=== PATIENT | female | born 1950 | race Caucasian/White ===

== ENCOUNTER → 2016-09-01 | Outpatient (CLI) | payer MEDICARE ==
--- NOTE | 2016-09-02 10:32 | MM ---
Reason for exam: screening (asymptomatic). Last mammogram was performed 4 years and 1 month ago. History: Patient is postmenopausal. Family history of breast cancer in mother. Physical Findings: A clinical breast exam by your physician is recommended on an annual basis and results should be correlated with mammographic findings. MG Screening Mammo w CAD Bilateral CC and MLO view(s) were taken. Prior study comparison: July 25, 2012, bilateral digital screening mammo w/CAD. June 01, 2011, bilateral digital screening mammo w/CAD. The breast tissue is heterogeneously dense. This may lower the sensitivity of mammography. Finding: There are typically benign calcifications in both breasts. There is a chronic nodularity bilaterally. No significant changes in finding since July 25, 2012 and June 01, 2011. ASSESSMENT: Benign, BI-RAD 2 RECOMMENDATION: Routine screening mammogram of both breasts in 1 year.
== END | disposition home or self-care (01) ==
LOC: RADMAMWWP 07:34
PROVIDERS: ATTEND Family Medicine
DX: Z12.31 Encounter for screening mammogram for malignant neoplasm of breast (principal)

== ENCOUNTER → 2018-01-20 | Outpatient (CLI) | payer MEDICARE ==
--- NOTE | 2018-01-20 09:40 | MM ---
Reason for exam: screening (asymptomatic). Last mammogram was performed 1 year and 5 months ago. History: Patient is postmenopausal. Family history of breast cancer in mother. Physical Findings: A clinical breast exam by your physician is recommended on an annual basis and results should be correlated with mammographic findings. MG Screening Mammo w CAD Bilateral CC and MLO view(s) were taken. Prior study comparison: September 01, 2016, bilateral MG screening mammo w CAD. July 25, 2012, bilateral digital screening mammo w/CAD. The breast tissue is heterogeneously dense. This may lower the sensitivity of mammography. Finding: There are typically benign round, grouped/clustered calcifications in the upper outer quadrant, posterior position of the left breast. There is a chronic nodularity bilaterally. There is no discrete abnormality. ASSESSMENT: Benign, BI-RAD 2 RECOMMENDATION: Routine screening mammogram of both breasts in 1 year.
== END | disposition home or self-care (01) ==
LOC: RADMAMWWP 06:44
PROVIDERS: ATTEND Family Medicine
DX: Z12.31 Encounter for screening mammogram for malignant neoplasm of breast (principal)
CPT/HCPCS: 77067

== ENCOUNTER → 2018-04-01 | Outpatient (CLI) | payer MEDICARE ==
--- NOTE | 2018-04-01 11:01 | XR ---
EXAMINATION TYPE: XR shoulder complete RT DATE OF EXAM: 04/01/2018 CLINICAL HISTORY: Right shoulder pain after a fall TECHNIQUE: Three views of the right shoulder are obtained. COMPARISON: None. FINDINGS: There is no acute fracture/dislocation evident in the right shoulder. The acromioclavicul ar and glenohumeral joint spaces appear demonstrate moderate acromioclavicular arthropathy and mild g lenohumeral arthropathy with small marginal osteophytes. The visualized ribs are intact and unremark able. IMPRESSION: There is no acute fracture or dislocation in the right shoulder. Moderate acromioclavicu lar arthropathy and mild glenohumeral arthropathy.
== END | disposition home or self-care (01) ==
LOC: RADXRMAIN 09:34
PROVIDERS: ATTEND Family Medicine
DX: M19.011 Primary osteoarthritis, right shoulder (principal)

== ENCOUNTER → 2020-07-15 | Outpatient (CLI) | payer MEDICARE ==
--- NOTE | 2020-07-17 08:45 | MM ---
Reason for exam: screening (asymptomatic). Last mammogram was performed 2 years and 6 months ago. History: Patient is postmenopausal and has history of other cancer at age 65. Family history of breast cancer in mother. Physical Findings: A clinical breast exam by your physician is recommended on an annual basis and results should be correlated with mammographic findings. MG 3D Screening Mammo W/Cad Bilateral CC and MLO view(s) were taken. Prior study comparison: January 20, 2018, bilateral MG screening mammo w CAD. September 01, 2016, bilateral MG screening mammo w CAD. The breast tissue is heterogeneously dense. This may lower the sensitivity of mammography. Finding: There are typically benign fine diffuse/scattered calcifications in both breasts. No significant changes in finding since January 20, 2018 and September 01, 2016. ASSESSMENT: Benign, BI-RAD 2 RECOMMENDATION: Routine screening mammogram of both breasts in 1 year.
--- NOTE | 2020-07-17 10:39 | BD ---
EXAMINATION TYPE: Axial Bone Density DATE OF EXAM: 07/15/2020 COMPARISON: NONE CLINICAL HISTORY: Height: 5 fFT 5 1/2 IN Weight: 169 FRAX RISK QUESTIONS: Alcohol (3 or more units per day): NO Family History (Parent hip fracture): NO Glucocorticoids (More than 3mos): NO (Ex: prednisone, prednisolone, methylprednisolone, dexamethasone, and hydrocortisone). History of Fracture in Adulthood: NO Secondary Osteoporosis: 1. Type 1 Diabetes: NO 2. Hyperthyroidism: NO 3. Menopause before 45: NO 4. Malnutrition: NO 5. Chronic liver disease: NO Rheumatoid Arthritis: NO Current Tobacco Use: JUST QUIT FOR ONE MONTH WAS A SMOKER FOR HER WHOLE LIFE RISK FACTORS HISTORY OF: Surgery to Spine/Hip(right/left)/Wrist (right/left): MARTHA HIP REPLACEMENT When: 2015 AND 2012 Family History of Osteoporosis: NO Active: YES Diet low in dairy products/other sources of calcium: NO Postmenopausal woman: AGE 47 Take estrogen and/or progesterone medications: NONE Lost more than 2 inches in height since high school: NO MEDICATIONS: Additional Medications: CHANTEX, JANUVIA, ATORVASTATIN, TRAZODONE, ASPIRIN,MELOXICAM,OXYBUTIN Additional History: EXAM MEASUREMENTS: Bone mineral densitometry was performed using the [employer] System. Bone mineral density as measured about the Lumbar spine is: ----- L1-L4(G/cm2): 1.513 T Score Values are as follows: ----- L2: 1.0 ----- L3: 4.2 ----- L4: 4.8 ----- L1-L4: 2.8 Bone mineral density has: INCREASED 29.9 % since study of: 2002 Bone mineral density about the L Wrist (g/cm2): 0.589 T Score values are as follows: -----Dist. R+U: -1.6 -----Prox. R+U: -1.2 -----Radius total: -1.4 FIRST TIME WRIST HAS BEEN DONE IMPRESSION: Osteopenia (T Score between -2.5 and -1). There is slightly increased risk of fracture and the patient may be considered for treatment. Re-Screen 2-5 years. NOTE: T-SCORE=SD OF THE YOUNG ADULT MEAN.
== END | disposition home or self-care (01) ==
LOC: RADMAMWWP 15:15
PROVIDERS: ATTEND Family Medicine
DX: Z12.31 Encounter for screening mammogram for malignant neoplasm of breast (principal); M85.80 Other specified disorders of bone density and structure, unspecified site
CPT/HCPCS: 77063; 77067; 77080

== ENCOUNTER → 2021-03-21 | Outpatient (CLI) | payer MEDICARE ==
[~2021-03-21] MED LIST: CASIRIVIMAB (REGN10933) (EUA) 600 MG, IMDEVIMAB (REGN10987) (EUA) 600 MG in SODIUM CHLO... IVPB NR; SODIUM CHLORIDE 0.9% 50 ML IVPB NR; SODIUM CHLORIDE 0.9% 500 ML 500 ML in EMPTY BAG 1 BAG IV PRN
[2021-03-21 10:37] VITALS: TEMP 97.7
[2021-03-21 10:46] VITALS: RESP 16
[2021-03-21 11:35] VITALS: BP 131/61; PULSE 76
== END | disposition home or self-care (01) ==
LOC: PROCWHC3 09:56
PROVIDERS: ATTEND Physician Assistant
DX: U07.1 COVID-19 (principal)
CPT/HCPCS: 96360; Q0244; M0243

== ENCOUNTER → 2021-09-29 | Outpatient (CLI) | payer MEDICARE ==
--- NOTE | 2021-09-30 09:29 | MM ---
Reason for Exam: Screening (asymptomatic). Last mammogram was performed 1 year(s) and 2 month(s) ago. Patient History: Menarche at age 11. Postmenopausal. Other cancer, age 65. Mother had breast cancer at or over age 50. Risk Values: Shameka 5 year model risk: 3.3%. NCI Lifetime model risk: 8.4%. Prior Study Comparison: 09/01/2016 Bilateral Screening Mammogram, [facility]. 01/20/2018 Bilateral Screening Mammogram, [facility]. 07/15/2020 Bilateral Screening Mammogram, [facility]. Tissue Density: The breast tissue is heterogeneously dense. This may lower the sensitivity of mammography. Findings: Analyzed By CAD. There are loosely grouped calcifications in the upper outer margin left breast. Additional benign-appearing calcifications. No dominant mass or architectural distortion. Overall Assessment: Incomplete: need additional imaging evaluation, BI-RAD 0 Management: Special View Mammogram of the left breast. A clinical breast exam by your physician is recommended on an annual basis and results should be correlated with mammographic findings. Electronically signed and approved by: Damaso Mckeon M.D. Radiologis
== END | disposition home or self-care (01) ==
LOC: RADMAMWWP 07:00
PROVIDERS: ATTEND Family Medicine
DX: Z12.31 Encounter for screening mammogram for malignant neoplasm of breast (principal); Z78.0 Asymptomatic menopausal state; Z80.3 Family history of malignant neoplasm of breast
CPT/HCPCS: 77063; 77067

== ENCOUNTER → 2021-10-03 | Outpatient (CLI) | payer MEDICARE ==
--- NOTE | 2021-10-03 08:31 | MM ---
Reason for Exam: Additional evaluation requested from abnormal screening. Last screening mammogram was performed less than 1 month ago. Patient History: Menarche at age 11. Postmenopausal. Other cancer, age 65. Mother had breast cancer at or over age 50. Risk Values: Shameka 5 year model risk: 3.3%. NCI Lifetime model risk: 8.4%. Prior Study Comparison: 01/20/2018 Bilateral Screening Mammogram, [facility]. 07/15/2020 Bilateral Screening Mammogram, [facility]. 09/29/2021 Bilateral MG 3D screening mammo w/cad, [facility]. Tissue Density: Left: The breast tissue is heterogeneously dense. This may lower the sensitivity of mammography. Findings: Analyzed By CAD. There are loosely grouped calcifications noted within the upper outer left breast zone C. Six-month follow-up mammography advised. Overall Assessment: Probably benign, BI-RAD 3 Management: Diagnostic Mammogram of the left breast. A clinical breast exam by your physician is recommended on an annual basis and results should be correlated with mammographic findings. This exam should not preclude additional follow-up of suspicious palpable abnormalities. Results were given to the patient verbally at the time of exam. Electronically signed and approved by: Ceasr Luevano M.D. Radiologis
== END | disposition home or self-care (01) ==
LOC: RADMAMWWP 07:42
PROVIDERS: ATTEND Family Medicine
DX: R92.8 Other abnormal and inconclusive findings on diagnostic imaging of breast (principal); Z78.0 Asymptomatic menopausal state; Z80.3 Family history of malignant neoplasm of breast
CPT/HCPCS: 77065; G0279; 77061

== ENCOUNTER → 2021-12-30 | Outpatient (CLI) | payer MEDICARE ==
--- NOTE | 2021-12-30 16:47 | XR ---
EXAMINATION TYPE: XR lumbar spine 2 or 3V DATE OF EXAM: 12/30/2021 3:35 PM INDICATION: Patient age:Female; 71 years old; Reason for study: M54.31 Sciatica; COMPARISON: None TECHNIQUE: Frontal, lateral and coned in L5-S1 lateral views of the spine. FINDINGS: There is multilevel disc degeneration changes with osteophyte formation and facet joint art hropathy. There is dextro scoliosis apex L3. There is grade 1 anterolisthesis of L4 on L5. Multilevel spinal canal narrowing seen throughout the spine most pronounced at L3-L4 and L5. No evidence for ac parker fracture. Soft tissues course of the arterial vasculature. There is large stool burden. Surgical clips in the pelvis. IMPRESSION: Moderate to severe degeneration changes of the spine with multilevel facet joint arthropathy and mult ilevel varying degrees of spinal canal stenosis.
--- NOTE | 2021-12-30 17:52 | CA ---
Transthoracic Echo Report Name: Lana Olivo Age: 71 Gender: F : 1950 Exam Date: 12/30/2021 15:01 Exam Location: [facility] Ht (in): 66 Wt (lb): 184 Ordering Physician: Philippe Hardy DO Attending/Referring Phys: Gang Bore Operator Yaz Williamson RDCS Procedure CPT: Indications: R01.1 cardiac murmur Cardiac Hx: Technical Quality: Fair Contrast 1: Total Dose (mL): Contrast 2: Total Dose (mL): MEASUREMENTS (Male / Female) Normal Values 2D ECHO LV Diastolic Diameter PLAX 5.2 cm 4.2 - 5.9 / 3.9 - 5.3 cm LV Systolic Diameter PLAX 3.8 cm IVS Diastolic Thickness 1.3 cm 0.6 - 1.0 / 0.6 - 0.9 cm LVPW Diastolic Thickness 1.4 cm 0.6 - 1.0 / 0.6 - 0.9 cm LV Relative Wall Thickness 0.5 RV Internal Dim ED PLAX 3.1 cm LA Systolic Diameter LX 3.5 cm 3.0 - 4.0 / 2.7 - 3.8 cm LA Volume 41.7 cm??? 18 - 58 / 22 - 52 cm??? M-MODE Aortic Root Diameter MM 3.5 cm MV E Point Septal Separation 2.6 cm AV Cusp Separation MM 2.1 cm DOPPLER AV Peak Velocity 249.7 cm/s AV Peak Gradient 24.9 mmHg AV Mean Velocity 175.4 cm/s AV Mean Gradient 13.7 mmHg AV Velocity Time Integral 59.9 cm LVOT Peak Velocity 73.7 cm/s LVOT Peak Gradient 2.2 mmHg MV Area PHT 3.6 cm??? Mitral E Point Velocity 79.6 cm/s Mitral A Point Velocity 79.6 cm/s Mitral E to A Ratio 1.0 MV Deceleration Time 211.4 ms MV E' Velocity 5.9 cm/s Mitral E to MV E' Ratio 13.5 TR Peak Velocity 215.6 cm/s TR Peak Gradient 18.6 mmHg Right Ventricular Systolic Press 22.7 mmHg FINDINGS Left Ventricle Left ventricular ejection fraction is estimated at 55-60 %. Mildly increased septal wall thickness. Moderately increased posterior wall thickness. Left ventricular cavity size normal. Right Ventricle Normal right ventricular size. Right ventricular systolic pressure within normal limits. Right Atrium Normal right atrial size. Left Atrium Normal left atrial size. No evidence for an atrial septal defect. Mitral Valve Structurally normal mitral valve. No evidence for mitral valve prolapse. No mitral stenosis. Trace to mild mitral regurgitation. Aortic Valve Aortic valve not well visualized. Focal thickening of the aortic valve cusps. Mild aortic stenosis with a peak gradient of 25 mmHg and a mean gradient of 14 mmHg. Tricuspid Valve Trace to mild tricuspid regurgitation. Pulmonic Valve Pulmonic valve not well visualized. Pericardium Normal pericardium. No pericardial effusion. Aorta Normal size aortic root and proximal ascending aorta. CONCLUSIONS Normal LV systolic function mild aortic stenosis Previewed by: Dr. Blue Tena MD (Electronically Signed) Final Date: 30 December 2021 17:51
== END | disposition home or self-care (01) ==
LOC: RADECHMAIN 14:47
PROVIDERS: ATTEND Family Medicine
DX: M47.816 Spondylosis without myelopathy or radiculopathy, lumbar region (principal); M48.061 Spinal stenosis, lumbar region without neurogenic claudication; I08.3 Combined rheumatic disorders of mitral, aortic and tricuspid valves
CPT/HCPCS: 72100; 93306

== ENCOUNTER → 2022-04-08 | Outpatient (CLI) | payer MEDICARE ==
--- NOTE | 2022-04-08 10:47 | MM ---
Reason for Exam: Follow-up at short interval from prior study. Last screening mammogram was performed 6 month(s) ago. Patient History: Menarche at age 11. First Full-Term at age 20. Left ovary removed at age 47. Right ovary removed at age 47. Hysterectomy at age 47. Postmenopausal. Mother had breast cancer at or over age 50. Risk Values: Shameka 5 year model risk: 3.4%. NCI Lifetime model risk: 8.6%. Prior Study Comparison: 07/15/2020 Bilateral Screening Mammogram, [facility]. 09/29/2021 Bilateral MG 3D screening mammo w/cad, [facility]. 10/03/2021 Left MG 3D work up w/cad , [facility]. Tissue Density: Left: There are scattered fibroglandular densities. Findings: Analyzed By CAD. Increasing conspicuity of grouped calcifications within the left breast approximately 12 cm from nipple on CC view which have become more prominent compared to 07/15/2020 where they were not definitively visualized. Additional more stable benign appearing grouped calcifications are also present more laterally on left CC view. Overall Assessment: Suspicious, BI-RAD 4 Management: Stereotactic Core Biopsy of the left breast. A clinical breast exam by your physician is recommended on an annual basis and results should be correlated with mammographic findings. This exam should not preclude additional follow-up of suspicious palpable abnormalities. Results were given to the patient verbally at the time of exam. Electronically signed and approved by: Chad Cortez DO
== END | disposition home or self-care (01) ==
LOC: RADMAMWWP 09:12
PROVIDERS: ATTEND Family Medicine
DX: N64.89 Other specified disorders of breast (principal); Z78.0 Asymptomatic menopausal state; Z80.3 Family history of malignant neoplasm of breast; Z90.721 Acquired absence of ovaries, unilateral
CPT/HCPCS: 77065; G0279; 77061

== ENCOUNTER → 2022-04-30 | Outpatient (CLI) | payer MEDICARE ==
[2022-04-30 07:39] VITALS: BP 121/54; PULSE 62; RESP 17; TEMP 98
--- NOTE | 2022-04-30 08:12 | P.GSHP ---
History of Present Illness H&P Date: 04/30/22 Chief Complaint: Abnormal left breast mammogram Lana is a 71-year-old white female seen in consultation for Dr. Hardy regarding the radiographic abnormality in the left breast. On 2421 she underwent a bilateral mammogram which revealed some calcifications in the upper outer left breast zone C in 6 month follow-up was recommended. Six-month follow-up was performed on [id number]. This revealed increasing calcifications for which stereotactic core biopsy was recommended these were noted on the cc view approximately 12 cm from the nipple. It does not feel any lumps masses or nodules of concern in either breast. She has never had any surgery on her cor[address] in the past. She is not complaining of any nipple discharge or skin changes. She has not had any recent trauma or infection in the breast. Caffeine: 3 cups coffee/day nicotine: none; stopped 3 years ago used to smoke 1/PPD for 50 years chocolate: daily BCP: 1 year Family History: mother: breast cancer at 72 brother: bladder cancer patient: skin cancer above right eye, uterine cancer Hormonal history: Menarche: 14 M1, breast fed: no, age at first : 20 menopause: 47 hormones: none Surgical History: skin cancer two hip replacements hysterectomy/ ? if they took ovaries Medical History: arthritis in back COPD Social History: alcohol: occasional drugs: none nicotine: as above - Constitutional Constitutional: Denies chills, Denies fever - EENT Eyes: bilateral as per HPI (cataracts), denies blurred vision, denies pain Ears, nose, mouth and throat: Denies headache, Denies sore throat - Breasts Breasts: bilateral: as per HPI - Cardiovascular Cardiovascular: Denies chest pain, Denies shortness of breath - Respiratory Respiratory: Denies cough, Denies 7 - Gastrointestinal Gastrointestinal: Denies abdominal pain, Denies diarrhea, Denies nausea, Denies vomiting - Genitourinary (Female) Genitourinary: Denies dysuria, Denies hematuria - Menstruation Menstruation: Reports as per HPI - Musculoskeletal Musculoskeletal: Reports as per HPI - Integumentary Integumentary: Denies pruritus, Denies rash - Neurological Neurological: Reports numbness, Denies weakness - Psychiatric Psychiatric: Denies anxiety, Denies depression - Endocrine Endocrine: Denies fatigue, Denies weight change - Hematologic/Lymphatic Comment: none - Allergic/Immunologic Allergic/Immunologic: Reports as per HPI Past Medical History Past Medical History: COPD, Hyperlipidemia, Hypertension Additional Past Medical History / Comment(s): Skin cancer in the form of basal cell carcinoma on the forehead that was resected, uterine cancer status post hysterectomy History of Any Multi-Drug Resistant Organisms: None Reported Past Surgical History: Appendectomy, Hysterectomy, Joint Replacement Additional Past Surgical History / Comment(s): basal cell forehead Past Anesthesia/Blood Transfusion Reactions: No Reported Reaction Past Psychological History: No Psychological Hx Reported Smoking Status: Former smoker Past Alcohol Use History: None Reported Past Drug Use History: None Reported - Past Family History Brother(s) Family Medical History: Cancer Sister(s) Family Medical History: Cancer Mother Family Medical History: Cancer Father Family Medical History: Deep Vein Thrombosis (DVT) Medications and Allergies Home Medications Medication Instructions Recorded Confirmed Type Atorvastatin [Lipitor] 20 mg PO HS 02/27/15 04/30/22 History Docusate [Colace] 100 mg PO DAILY #30 capsule 01/08/16 04/30/22 Rx Ascorbic Acid [Vitamin C] 500 mg PO TID 04/08/22 04/30/22 History Aspirin [[place] Aspirin EC] 81 mg PO DAILY 04/08/22 04/30/22 History Cholecalciferol (Vitamin D3) 125 mcg PO BID 04/08/22 04/30/22 History [Vitamin D3 (125 MCG = 5,000 IU)] Finerenone [Kerendia] 10 mg PO DAILY 04/08/22 04/30/22 History Losartan [Cozaar] 25 mg PO DAILY 04/08/22 04/30/22 History Omeprazole [PriLOSEC] 20 mg PO AC-BRKFST 04/08/22 04/30/22 History Oxybutynin Chloride [Oxybutynin 15 mg PO DAILY 04/08/22 04/30/22 History Chloride ER] icosapent ethyL [Vascepa] 2 gm PO BID 04/08/22 04/30/22 History sitaGLIPtin [Januvia] 100 mg PO DAILY 04/08/22 04/30/22 History traZODone HCL [Desyrel] 50 mg PO HS 04/08/22 04/30/22 History Allergies Allergy/AdvReac Type Severity Reaction Status Date / Time No Known Allergies Allergy Verified 04/30/22 07:34 Surgical - Exam Vital Signs Temp Pulse Resp BP Pulse Ox 98 F 62 17 121/54 98 04/30/22 07:37 04/30/22 07:37 04/30/22 07:37 04/30/22 07:37 04/30/22 07:37 - General no distress - Eyes normal ocular movement - ENT no hearing loss, no congestion - Neck trachea midline - Respiratory normal respiratory effort, clear to auscultation - Cardiovascular Rhythm: regular Heart Sounds: normal: S1, S2 - Abdomen Abdomen: soft - Integumentary normal turgor - Neurologic no disoriented, no combative - Musculoskeletal normal gait - Psychiatric oriented to time, oriented to person, oriented to place, speech is normal, memory intact Breast Exam: BRA: 42C Inspection: Bilateral grade 2/3 ptosis Palpation: Right breast: Multiple positional exam fibrocystic changes no dominant masses or nodules of concern Right axilla: No adenopathy of concern Left breast: Multiple positional exam fibrocystic changes no dominant masses or nodules of concern Left axilla: No adenopathy of concern Results Mammogram reviewed in detail with Dr. Tarango; microcalcifications of concern left breast Assessment and Plan Assessment: Impression: Left breast radiographic abnormality/microcalcifications Fibrocystic breast changes Plan: Left breast stereotactic core biopsy Risks and benefits the procedure discussed with the patient. Risks include but are not limited to bleeding, infection, reaction to the anesthetic. The patient understands and wishes to proceed. If the lesion were to be discordant and further tissue may be acquisition may be necessary. Additionally options such as watchful waiting for resection in the operating room are discussed but not recommended. CC: Dr. Hardy
--- NOTE | 2022-04-30 09:50 | P.PCN ---
Date of Procedure: 04/30/22 Preoperative Diagnosis: Microcalcifications of concern left breast Postoperative Diagnosis: Same Procedure(s) Performed: Left breast stereotactic core biopsy Anesthesia: local Surgeon: Zaria Salgado Pathology: other (Breast tissue with microcalcifications of concern) Condition: stable Disposition: same day Indications for Procedure: Microcalcifications of concern left breast Operative Findings: Radiographic of specimen reveals microcalcifications of concern Description of Procedure: The patient was brought to the stereotactic core biopsy room. She was positioned prone on the Lorad table. A district manager film was obtained. A CC from below approach was utilized. The calcifications of concern were identified. They were targeted. The breast was prepped using Betadine. A 9-gauge vacuum- assisted core rotating biopsy needle was driven to the correct coordinates after 20 mL of 1% lidocaine were used to anesthetize the area of concern. A prefire film was obtained. The needle was noted to be in the correct location. The needle was fired. Post fire film was obtained. The needle was noted to be in the correct location. 16 core biopsy specimens were obtained. Radiograph of the specimen revealed the area of concern had been adequately sampled. A butterfly clip was placed. Could not be seen with certainty that it was in the right location therefore a secure marked top a clip was placed. Postprocedure radiograph revealed that the initial clip was in the correct location. The secure marked top at clip appeared to have migrated from the area of biopsy. The patient tolerated the procedure in stable condition. Specimen was sent to pathology. The patient will follow-up with Dr. Gordon next week.
== END ==
LOC: WWCWWP 07:03
PROVIDERS: ATTEND Surgery
DX: Z85.3 Personal history of malignant neoplasm of breast (principal); M19.90 Unspecified osteoarthritis, unspecified site; J44.9 Chronic obstructive pulmonary disease, unspecified; E78.5 Hyperlipidemia, unspecified; I10 Essential (primary) hypertension; Z79.82 Long term (current) use of aspirin; F17.200 Nicotine dependence, unspecified, uncomplicated

== ENCOUNTER → 2022-04-30 | Day surgery (SDC) | payer MEDICARE ==
--- NOTE | 2022-04-30 11:48 | MM ---
Date of Procedure: 04/30/22 Preoperative Diagnosis: Microcalcifications of concern left breast Postoperative Diagnosis: Same Procedure(s) Performed: Left breast stereotactic core biopsy Anesthesia: local Surgeon: Zaria Salgado Pathology: other (Breast tissue with microcalcifications of concern) Condition: stable Disposition: same day Indications for Procedure: Microcalcifications of concern left breast Operative Findings: Radiographic of specimen reveals microcalcifications of concern Description of Procedure: The patient was brought to the stereotactic core biopsy room. She was positioned prone on the [place] table. A hockey scout film was obtained. A CC from below approach was utilized. The calcifications of concern were identified. They were targeted. The breast was prepped using Betadine. A 9-gauge vacuum- assisted core rotating biopsy needle was driven to the correct coordinates after 20 mL of 1% lidocaine were used to anesthetize the area of concern. A prefire film was obtained. The needle was noted to be in the correct location. The needle was fired. Post fire film was obtained. The needle was noted to be in the correct location. 16 core biopsy specimens were obtained. Radiograph of the specimen revealed the area of concern had been adequately sampled. A butterfly clip was placed. Could not be seen with certainty that it was in the right location therefore a secure marked top a clip was placed. Postprocedure radiograph revealed that the initial clip was in the correct location. The secure marked top at clip appeared to have migrated from the area of biopsy. The patient tolerated the procedure in stable condition. Specimen was sent to pathology. The patient will follow-up with Dr. Gordon next week. ONUR
== END ==
LOC: RADMAMWWP 07:05
PROVIDERS: ATTEND Surgery
DX: N60.22 Fibroadenosis of left breast (principal); N60.12 Diffuse cystic mastopathy of left breast; N60.92 Unspecified benign mammary dysplasia of left breast
CPT/HCPCS: 88305; 88342; 88341; 19081; A4648

== ENCOUNTER → 2022-05-08 | Outpatient (CLI) | payer MEDICARE ==
[2022-05-08 12:32] VITALS: BP 150/75; PULSE 77; RESP 17; TEMP 97.9
--- NOTE | 2022-05-08 13:03 | P.PN ---
Subjective Progress Note Date: 05/08/22 Principal diagnosis: atypical lobular hyperplasia Lana is a 71 year old white female status post left breast stero biopsy on 04-30-22. Her pathology revealed atypical lobular hyperplasia. At the time of the procedure 2 clips were placed a coil clip and a top hat clip. The radiograph has been reviewed extensively with Dr. Tarango from radiology and it is felt that the cortical clip was the one which is in proximity to the area of biopsy. Additionally there were 2 areas of calcification the second area which is again reviewed today does not appear to be suspicious and is not felt to warrant interventional biopsy prior to needle localization and excision of the a zane of atypia. Objective - Vital Signs Vital signs: Vital Signs Temp 97.9 F 05/08/22 12:29 Pulse 77 05/08/22 12:29 Resp 17 05/08/22 12:29 BP 150/75 05/08/22 12:29 Pulse Ox 97 05/08/22 12:29 FiO2 Intake & Output 05/07/22 05/08/22 05/08/22 18:59 06:59 18:59 Weight 83.007 kg - Constitutional General appearance: Present: cooperative - EENT Eyes: Present: EOMI ENT: Present: hearing grossly normal - Neck Neck: Present: normal ROM - Respiratory Respiratory: bilateral: CTA - Cardiovascular Rhythm: regular Heart sounds: normal: S1, S2 - Gastrointestinal General gastrointestinal: Present: soft - Integumentary Integumentary Comment(s): mild echymosis left breast at biopsy site Integumentary: Present: normal turgor - Musculoskeletal Musculoskeletal: Present: gait normal - Psychiatric Psychiatric: Present: A&O x's 3, appropriate affect, intact judgment & insight Assessment and Plan Assessment: impression: left breast stero biopsy atypical lobular hyperplasia Plan: needle localization and lumpectomy left breast, with possible onco-plastic tissue transfer At this time the patient and her are going to [place] and they will have the procedure performed when they return towards the end of June. They understand that I cannot promise that this is not malignant however they will have the procedure done when they come back. CC: Dr. Hardy
== END ==
LOC: WWCWWP 12:23
PROVIDERS: ATTEND Surgery
DX: N60.82 Other benign mammary dysplasias of left breast (principal); F17.200 Nicotine dependence, unspecified, uncomplicated

== ENCOUNTER → 2022-08-27 | Outpatient (CLI) | payer MEDICARE ==
[2022-08-27 15:10] VITALS: BP 129/55; PULSE 63; RESP 18; TEMP 97.9
--- NOTE | 2022-08-27 15:30 | P.PN ---
Subjective Progress Note Date: 08/27/22 Principal diagnosis: Atypical lobular hyperplasia Lana is a 71-year-old white female seen in consultation for Dr. Hardy regarding a radiographic abnormality in the left breast. On she underwent a bilateral mammogram which revealed some calcifications in the upper outer left breast zone C in 6 month follow-up was recommended. Six-month follow-up was performed on [id number]. This revealed increasing calcifications for which stereotactic core biopsy was recommended these were noted on the cc view approximately 12 cm from the nipple. On 04-30-22 she underwent a stereotactic core biopsy. This revealed atypical lobular hyperplasia. She does not feel any lumps masses or nodules of concern in either breast. She has never had any surgery on her breast in the past. She is not complaining of any nipple discharge or skin changes. She has not had any recent trauma or infection in the breast. At the time of the procedure 2 clips were placed. A coil clip and a Top-Hat clip were placed. The radiograph was reviewed extensively with Dr. Tarango from radiology and it was felt that the corneal clip was the one which was in proximity to the area of the biopsy. Additionally there were 2 areas of calcification the second area which was again reviewed did not appear to be suspicious and was not felt to warrant interventional biopsy prior to needle localization and excision of the area of atypia. The mammogram was reviewed today with Dr. De Leon. It is felt that there are residual calcifications in the vicinity of the biopsy. The biopsy may be discordant. I discussed with the patient that we could forego a needle local excisional biopsy and recent recommendations are to watch some atypical lobular hyperplasias. However secondary to the radiographic findings as well as the patient's family history the patient would prefer that the area be excised. Caffeine: 3 cups coffee/day nicotine: none; stopped 3 years ago used to smoke 1/PPD for 50 years chocolate: daily BCP: 1 year Family History: mother: breast cancer at 72 brother: bladder cancer patient: skin cancer above right eye, uterine cancer Hormonal history: Menarche: 14 M1, breast fed: no, age at first : 20 menopause: 47 hormones: none Surgical History: skin cancer two hip replacements hysterectomy/ ? if they took ovaries Medical History: arthritis in back COPD Social History: alcohol: occasional drugs: none nicotine: as above - Constitutional Constitutional: Denies chills, Denies fever - EENT Eyes: bilateral as per HPI (cataracts), denies blurred vision, denies pain Ears, nose, mouth and throat: Denies headache, Denies sore throat - Breasts Breasts: bilateral: as per HPI - Cardiovascular Cardiovascular: Denies chest pain, Denies shortness of breath - Respiratory Respiratory: Denies cough - Gastrointestinal Gastrointestinal: Denies abdominal pain, Denies diarrhea, Denies nausea, Denies vomiting - Genitourinary (Female) Genitourinary: Denies dysuria, Denies hematuria - Menstruation Menstruation: Reports as per HPI - Musculoskeletal Musculoskeletal: Reports as per HPI - Integumentary Integumentary: Denies pruritus, Denies rash - Neurological Neurological: Reports numbness, Denies weakness - Psychiatric Psychiatric: Denies anxiety, Denies depression - Endocrine Endocrine: Denies fatigue, Denies weight change - Hematologic/Lymphatic Comment: none - Allergic/Immunologic Allergic/Immunologic: Reports as per HPI Past Medical History Past Medical History: COPD, Hyperlipidemia, Hypertension Additional Past Medical History / Comment(s): Skin cancer in the form of basal cell carcinoma on the forehead that was resected, uterine cancer status post hysterectomy History of Any Multi-Drug Resistant Organisms: None Reported Past Surgical History: Appendectomy, Hysterectomy, Joint Replacement Additional Past Surgical History / Comment(s): basal cell forehead Past Anesthesia/Blood Transfusion Reactions: No Reported Reaction Past Psychological History: No Psychological Hx Reported Smoking Status: Former smoker Past Alcohol Use History: None Reported Past Drug Use History: None Reported - Past Family History Brother(s) Family Medical History: Cancer Sister(s) Family Medical History: Cancer Mother Family Medical History: Cancer Father Family Medical History: Deep Vein Thrombosis (DVT) Medications and Allergies Home Medications Medication Instructions Recorded Confirmed Type Atorvastatin [Lipitor] 20 mg PO HS 02/27/15 04/30/22 History Docusate [Colace] 100 mg PO DAILY #30 capsule 01/08/16 04/30/22 Rx Ascorbic Acid [Vitamin C] 500 mg PO TID 04/08/22 04/30/22 History Aspirin [Vaughn Aspirin EC] 81 mg PO DAILY 04/08/22 04/30/22 History Cholecalciferol (Vitamin D3) 125 mcg PO BID 04/08/22 04/30/22 History [Vitamin D3 (125 MCG = 5,000 IU)] Finerenone [Kerendia] 10 mg PO DAILY 04/08/22 04/30/22 History Losartan [Cozaar] 25 mg PO DAILY 04/08/22 04/30/22 History Omeprazole [PriLOSEC] 20 mg PO AC-BRKFST 04/08/22 04/30/22 History Oxybutynin Chloride [Oxybutynin 15 mg PO DAILY 04/08/22 04/30/22 History Chloride ER] icosapent ethyL [Vascepa] 2 gm PO BID 04/08/22 04/30/22 History sitaGLIPtin [Januvia] 100 mg PO DAILY 04/08/22 04/30/22 History traZODone HCL [Desyrel] 50 mg PO HS 04/08/22 04/30/22 History Allergies Allergy/AdvReac Type Severity Reaction Status Date / Time No Known Allergies Allergy Verified 04/30/22 07:34 Objective - Constitutional General appearance: Present: cooperative - EENT Eyes: Present: EOMI ENT: Present: hearing grossly normal - Neck Neck: Present: normal ROM - Respiratory Respiratory: bilateral: CTA - Cardiovascular Rhythm: regular Heart sounds: normal: S1, S2 - Gastrointestinal General gastrointestinal: Present: soft - Integumentary Integumentary: Present: normal turgor - Musculoskeletal Musculoskeletal: Present: gait normal - Psychiatric Psychiatric: Present: A&O x's 3, appropriate affect, intact judgment & insight - Additional findings Additional findings: Breast Exam: BRA: 42C Inspection: Bilateral grade 2/3 ptosis Palpation: Right breast: Multiple positional exam fibrocystic changes no dominant masses or nodules of concern Right axilla: No adenopathy of concern Left breast: Multiple positional exam fibrocystic changes no dominant masses or nodules of concern Left axilla: No adenopathy of concern Assessment and Plan Assessment: Impression: arthritis in back COPD ALH left breast family history breast cancer Plan: Left breast needle localization excisional biopsy, left breast possible onco- plastic tissue transfer appointment medical oncology chemoprevention Risks and benefits of the procedure were discussed with the patient. Risks include but are not limited to bleeding, infection, reaction to the anesthetic. The possibility of the needle slipping and not getting the correct area as discussed in which case additional tissue acquisition may be necessary in the future. The patient understands and wishes to proceed. Cc: Dr. Mona Hardy
== END ==
LOC: WWCWWP 14:57
PROVIDERS: ATTEND Surgery
DX: D18.01 Hemangioma of skin and subcutaneous tissue (principal); Z80.3 Family history of malignant neoplasm of breast; J44.9 Chronic obstructive pulmonary disease, unspecified; M19.90 Unspecified osteoarthritis, unspecified site; F17.200 Nicotine dependence, unspecified, uncomplicated

== ENCOUNTER 2022-09-08 12:54 | Day surgery (SDC) | payer MEDICARE ==
[2022-09-03 10:25] VITALS: BMI 28.5
[~2022-09-08 12:54] MED LIST changes: -CASIRIVIMAB (REGN10933) (EUA) 600 MG, IMDEVIMAB (REGN10987) (EUA) 600 MG in SODIUM CHLO... IVPB NR; +DEXAMETHASONE SOD PHOSPHATE 4 MG/ML 1 ML VIAL IV ONE; +HEPARIN SODIUM,PORCINE/PF 5,000 UNIT/0.5 ML SYRINGE SQ PRN; +HYDROmorphone 0.5 MG/0.5 ML SYRINGE IVP PRN; +LACTATED RINGERS 1,000 ML IV SCH; +LIDOCAINE 1% (10MG/ML) FOR IV START INTRADERMA PRN; +MIDAZOLAM 2 MG/2 ML VIAL IV PRN; +ONDANSETRON 4 MG/2 ML VIAL IVP ONE; +Pre Op ABX Message 1 EACH MISC MISCELLANE ONE; -SODIUM CHLORIDE 0.9% 50 ML IVPB NR; -SODIUM CHLORIDE 0.9% 500 ML 500 ML in EMPTY BAG 1 BAG IV PRN
[2022-09-08] MEDS ORDERED: ALPRAZolam 0.25 MG TAB PO ONE (13:49)
[2022-09-08] MEDS ORDERED: ALPRAZolam 0.25 MG TAB ONE (13:50)
[2022-09-08] MEDS ORDERED: LIDOCAINE 1% INJ 10MG/ML (20 ML MDV) SQ ONE (14:30)
[2022-09-08 15:22] LABS: Glucose,Whole Blood 100 mg/dL (70-110)
[2022-09-08] MEDS ORDERED: LIDOCAINE 2% INJ 20 MG/ML (2 ML VIAL) ONE (15:42)
[2022-09-08] MEDS ORDERED: PROPOFOL 10 MG/ML 20 ML VIAL IV ONE (15:42)
[2022-09-08] MEDS ORDERED: fentaNYL (PF) 50 MCG/ML 2 ML AMP ONE (15:42)
[2022-09-08] MEDS ORDERED: KETOROLAC 15 MG/ML 1 ML VIAL ONE (15:42)
[2022-09-08] MEDS ORDERED: SUCCINYLCHOLINE CHLORIDE 200 MG/10 ML VIAL IV ONE (15:42)
[2022-09-08] MEDS ORDERED: MIDAZOLAM 2 MG/2 ML VIAL ONE (15:42)
--- NOTE | 2022-09-08 16:00 | MM ---
Risk Values: Shameka 5 year model risk: 7.6%. NCI Lifetime model risk: 17.7%. Prior Study Comparison: 09/29/2021 Bilateral MG 3D screening mammo w/cad, [facility]. 10/03/2021 Left MG 3D work up w/cad LT, [facility]. 04/08/2022 Left MG 3D diag mammo w/cad , [facility]. Pathology Description: The procedure of needle localization with wire placement and than surgical excision was explained to the patient. Benefits, alternatives, and risks were discussed. An informed consent was then obtained. The shortest pathway for procedure was chosen. Shortest pathway was lateral approach. The overlying skin was prepped and draped in usual sterile fashion. Lidocaine buffered with bicarbonate was used as anesthetic into the skin and subcutaneous tissue up to the level of area of concern. A 9 cm needle was used. It was placed via a lateral approach under mammographic guidance. Subsequent 90 degrees mammogram show the needle to be in satisfactory position relative to the targeted area. At this point, wire was placed and the needle was withdrawn. The wire was fixed to patient's skin. Images were marked for surgeon. The patient tolerated the procedure well without any immediate complication. The patient was kept in the radiology department for short stay after the procedure and then taken to surgery for surgical excision. Targeted coil clip and wire are identified in specimen mammogram. The patient was kept in hospital for short stay after the procedure and then discharged home in stable condition. Impression: Successful, uncomplicated needle localization with wire placement and surgical excision of suspicious group of calcifications in the left breast, full pathology results to follow. Pathology Results: Results pending. Electronically signed and approved by: Chad Cortez DO
--- NOTE | 2022-09-08 16:30 | P.OP ---
Date of Procedure: 09/08/22 Preoperative Diagnosis: Atypical lobular hyperplasia left breast/questionably discordant biopsy Postoperative Diagnosis: Same Procedure(s) Performed: needle localization excision area of concern left breast Anesthesia: WOLF Surgeon: Zaria Salgado Estimated Blood Loss (ml): 5 IV fluids (ml): 300 Pathology: other (Breast tissue) Condition: stable Disposition: same day Indications for Procedure: Atypical lobular hyperplasia on core biopsy, question of this was discordant Operative Findings: Fibrofatty breast tissue Description of Procedure: The patient was first seen in the radiology department with localization of the area of concern was performed. She was brought to the operative suite and following induction of anesthesia the left breast was prepped and draped in a sterile fashion. An incision was Made and carried down to the shaft of the needle to the surrounding tissue and this was excised. Titanium clips were placed. The deep tissues were closed using 3-0 Vicryl suture. The specimen was painted for orientation. Radiograph of the specimen was performed. The skin was closed using a 4-0 Monocryl. The patient tolerated the procedure in stable condition.
--- NOTE | 2022-09-08 16:32 | P.DS ---
Providers Attending physician: Zaria Salgado Primary care physician: Philippe Hardy Plan - Discharge Summary Discharge Rx Participant: No New Discharge Prescriptions: No Action Atorvastatin [Lipitor] 20 mg PO HS Docusate [Colace] 100 mg PO DAILY #30 capsule Omeprazole [PriLOSEC] 20 mg PO AC-BRKFST Aspirin [Sandwich Aspirin EC] 81 mg PO DAILY icosapent ethyL [Vascepa] 2 gm PO BID traZODone HCL [Desyrel] 50 mg PO HS Losartan [Cozaar] 25 mg PO QAM Menthol [Biofreeze] 1 applic TOPICAL DIRECTED PRN PRN Reason: Pain Cholecalciferol (Vitamin D3) [Vitamin D3 (125 MCG = 5,000 IU)] 125 mcg PO BID Ascorbic Acid [Vitamin C] 500 mg PO TID Oxybutynin Chloride [Oxybutynin Chloride ER] 15 mg PO DAILY sitaGLIPtin [Januvia] 100 mg PO DAILY Finerenone [Kerendia] 10 mg PO DAILY Discharge Medication List Atorvastatin [Lipitor] 20 mg PO HS 02/27/15 [History] Docusate [Colace] 100 mg PO DAILY #30 capsule 01/08/16 [Rx] Ascorbic Acid [Vitamin C] 500 mg PO TID 04/08/22 [History] Aspirin [Sandwich Aspirin EC] 81 mg PO DAILY 04/08/22 [History] Cholecalciferol (Vitamin D3) [Vitamin D3 (125 MCG = 5,000 IU)] 125 mcg PO BID 04/08/22 [History] Finerenone [Kerendia] 10 mg PO DAILY 04/08/22 [History] Losartan [Cozaar] 25 mg PO QAM 04/08/22 [History] Omeprazole [PriLOSEC] 20 mg PO AC-BRKFST 04/08/22 [History] Oxybutynin Chloride [Oxybutynin Chloride ER] 15 mg PO DAILY 04/08/22 [History] icosapent ethyL [Vascepa] 2 gm PO BID 04/08/22 [History] sitaGLIPtin [Januvia] 100 mg PO DAILY 04/08/22 [History] traZODone HCL [Desyrel] 50 mg PO HS 04/08/22 [History] Menthol [Biofreeze] 1 applic TOPICAL DIRECTED PRN 09/03/22 [History] Follow up Appointment(s)/Referral(s): Zaria Salgado MD [STAFF PHYSICIAN] - 09/17/22 1:40 pm Activity/Diet/Wound Care/Special Instructions: Do not drive for 24 hours from discharge Do not drive if taking narcotic pain medicine May shower after 48 hours wear bra at all times Discharge Disposition: HOME SELF-CARE
[2022-09-08 17:00] VITALS: TEMP 97.4
[2022-09-08] MEDS ORDERED: HYDROcodone/APAP 5-325MG 1 EACH TAB ONE (17:41)
[2022-09-08 17:52] VITALS: RESP 16
[2022-09-08 17:55] VITALS: BP 131/78; PULSE 78
== END 2022-09-08 18:25 | disposition home or self-care (01) ==
LOC: OR 12:54
PROVIDERS: ATTEND Surgery
DX: N60.22 Fibroadenosis of left breast (principal); N60.82 Other benign mammary dysplasias of left breast; N60.92 Unspecified benign mammary dysplasia of left breast; I10 Essential (primary) hypertension; E78.5 Hyperlipidemia, unspecified; J44.9 Chronic obstructive pulmonary disease, unspecified; Z87.891 Personal history of nicotine dependence; E11.9 Type 2 diabetes mellitus without complications; K21.9 Gastro-esophageal reflux disease without esophagitis; F10.20 Alcohol dependence, uncomplicated; M19.90 Unspecified osteoarthritis, unspecified site; Z79.51 Long term (current) use of inhaled steroids; Z79.82 Long term (current) use of aspirin; Z79.84 Long term (current) use of oral hypoglycemic drugs; Z79.899 Other long term (current) drug therapy; Z80.0 Family history of malignant neoplasm of digestive organs; Z78.0 Asymptomatic menopausal state; Z85.828 Personal history of other malignant neoplasm of skin; Z85.42 Personal history of malignant neoplasm of other parts of uterus
CPT/HCPCS: 19125; 76098; 19281; C1819; J2250; J0330; J1100; J2405; J2001 ×2; J3010; J1885; J2704; J1644; 88307; 88341; 88342

== ENCOUNTER → 2022-09-17 | Outpatient (CLI) | payer MEDICARE ==
--- NOTE | 2022-09-17 14:17 | P.PN ---
Progress Note - Text Progress Note Date: 09/17/22 Lana is status post left breast needle localization and lumpectomy on 09-08-22. Her pathology showed lobular neoplasia with atypical lobular hyperplasia and focal features bordering on potential LCIS. Examination: Lungs clear Heart regular rate and rhythm Incision: Clean and dry Impression: Left breast lumpectomy revealing atypical lobular hyperplasia and LCIS Plan: follow up 6 months left breast mammogram and appointment appointment medical oncology to discuss chemoprophylaxis CC: DR. Hardy
[2022-09-17 14:27] VITALS: BP 131/58; PULSE 86; RESP 17; TEMP 97.8
== END ==
LOC: WWCWWP 13:47
PROVIDERS: ATTEND Surgery
DX: N62 Hypertrophy of breast (principal); Z90.12 Acquired absence of left breast and nipple; F17.200 Nicotine dependence, unspecified, uncomplicated

== ENCOUNTER → 2023-03-12 | Outpatient (CLI) | payer MEDICARE ==
--- NOTE | 2023-03-12 13:44 | MM ---
Reason for Exam: High risk patient. Last mammogram was performed 1 year(s) and 6 month(s) ago. Patient History: Menarche at age 11. First Full-Term at age 20. Left ovary removed at age 47. Right ovary removed at age 47. Hysterectomy at age 47. Postmenopausal. Previous Atypical Lobular Hyperplasia at age 71. 09/08/2022, Lumpectomy on the Left side. 09/08/2022, High risk MG pre op needle loc LT on the left side. 04/30/2022, High risk MG stereo VAD BX LT on the left side. Mother had breast cancer at or over age 50. Risk Values: Shameka 5 year model risk: 9.6%. NCI Lifetime model risk: 21.9%. Prior Study Comparison: 09/29/2021 Bilateral MG 3D screening mammo w/cad, [facility]. 10/03/2021 Left MG 3D work up w/cad LT, [facility]. 04/08/2022 Left MG 3D diag mammo w/cad LT, [facility]. Tissue Density: Left: The breast tissue is almost entirely fat. Findings: Analyzed By CAD. Benign-appearing calcifications. Postprocedural changes. No new suspicious masses, calcifications or distortions. Overall Assessment: Benign, BI-RAD 2 Management: Screening Mammogram of the left breast in 1 year. Results were given to the patient verbally at the time of exam. Patient should continue monthly self-breast exams. A clinical breast exam by your physician is recommended on an annual basis. This exam should not preclude additional follow-up of suspicious palpable abnormalities. Note on Shameka scores and lifetime risk: 1. A Shameka score greater than 3% is considered moderate risk. If this is the case, consider specialist referral to assess eligibility for a risk reducing agent. 2. If overall lifetime risk for the development of breast cancer is 20% or higher, the patient may qualify for future screening with alternating mammogram and breast MRI. Electronically signed and approved by: Chad Cortez DO
== END | disposition home or self-care (01) ==
LOC: RADMAMWWP 12:59
PROVIDERS: ATTEND Surgery
DX: N63.20 Unspecified lump in the left breast, unspecified quadrant (principal); R92.8 Other abnormal and inconclusive findings on diagnostic imaging of breast; R92.312 Mammographic fatty tissue density, left breast; Z80.3 Family history of malignant neoplasm of breast; Z78.0 Asymptomatic menopausal state
CPT/HCPCS: 77065; G0279; 77061

== ENCOUNTER → 2023-11-11 | Outpatient (CLI) | payer MEDICARE ==
--- NOTE | 2023-11-11 10:28 | BD ---
EXAMINATION TYPE: Axial Bone Density DATE OF EXAM: 11/11/2023 CLINICAL HISTORY: 73 years old Female. ICD-10 CODE: Z78.0 ASYMPTOMATIC MENOPAUSAL STATE Height: 65in Weight: 183lb FRAX RISK QUESTIONS: Secondary Osteoporosis: RISK FACTORS HISTORY OF: Surgery to Spine/Hip(right/left)/Wrist (right/left): bilateral hip replacements When: 2012, 2015 MEDICATIONS: EXAM MEASUREMENTS: Bone mineral densitometry was performed using the [employer] System. Bone mineral density as measured about the Lumbar spine is: ----- L1-L4(G/cm2): 1.476 T Score Values are as follows: ----- L1: 0.4 ----- L2: 2.0 ----- L3: 3.5 ----- L4: 3.6 ----- L1-L4: 2.5 Z Score Values are as follows: ----- L1: 1.5 ----- L2: 3.1 ----- L3: 4.6 ----- L4: 4.7 ----- L1-L4: 3.6 Bone mineral density has: Decreased -2.4% since study of: 07-15-20 Bone mineral density about the L Wrist (g/cm2): 0.553 T Score values are as follows: -----Dist. R+U: -2.3 -----Prox. R+U: -1.5 -----Radius total: -2.0 Z Score values are as follows: -----Dist. R+U: -0.1 -----Prox. R+U: 0.7 -----Radius total: 0.2 Bone mineral density has: Decreased -2.7% since study of: 07-15-20 FRAX%s: No frax IMPRESSION: Osteopenia (T Score between -2.5 and -1). There is slightly increased risk of fracture and the patient may be considered for treatment. Re-Screen 2-5 years. NOTE: T-SCORE=SD OF THE YOUNG ADULT MEAN.
== END | disposition home or self-care (01) ==
LOC: RADBDWWP 09:07
PROVIDERS: ATTEND Family Medicine
DX: Z78.0 Asymptomatic menopausal state (principal); M85.88 Other specified disorders of bone density and structure, other site
CPT/HCPCS: 77080

== ENCOUNTER → 2024-03-31 | Outpatient (CLI) | payer MEDICARE ==
--- NOTE | 2024-03-31 13:53 | MM ---
Reason for Exam: Clinical finding. Last mammogram was performed 2 year(s) and 6 month(s) ago. Indicated Problems: Pain of the left side (Focal) for 1 Day(s) : pain and prior lump axillary area. Patient History: Menarche at age 11. First Full-Term at age 23. Left ovary removed at age 47. Right ovary removed at age 47. Hysterectomy at age 47. Postmenopausal. Previous Atypical Lobular Hyperplasia at age 71. 09/08/2022, Lumpectomy on the Left side. 09/08/2022, High risk MG pre op needle loc LT on the left side. 04/30/2022, High risk MG stereo VAD BX LT on the left side. Mother had breast cancer at or over age 50. Risk Values: Shameka 5 year model risk: 9.6%. NCI Lifetime model risk: 20.7%. Prior Study Comparison: 09/01/2016 Bilateral Screening Mammogram, [facility]. 01/20/2018 Bilateral Screening Mammogram, [facility]. 07/15/2020 Bilateral Screening Mammogram, [facility]. 09/29/2021 Bilateral MG 3D screening mammo w/cad, [facility]. 10/03/2021 Left MG 3D work up w/cad LT, [facility]. 04/08/2022 Left MG 3D diag mammo w/cad LT, [facility]. 03/12/2023 Left MG 3D diag mammo w/cad LT, [facility]. Tissue Density: The breasts are heterogeneously dense, which may obscure small masses. Findings: Analyzed By CAD. There is a mass within the upper outer left breast 12 cm from the nipple measuring 17 mm in size. Ultrasound is recommended. Internal calcifications noted. Right-sided calcifications identified. No additional masses present. Overall Assessment: Incomplete: need additional imaging evaluation, BI-RAD 0 Management: Diagnostic Breast Ultrasound of the left breast. . Results were given to the patient verbally at the time of exam. Patient should continue monthly self-breast exams. A clinical breast exam by your physician is recommended on an annual basis. This exam should not preclude additional follow-up of suspicious palpable abnormalities. Note on Shameka scores and lifetime risk: 1. A Shameka score greater than 3% is considered moderate risk. If this is the case, consider specialist referral to assess eligibility for a risk reducing agent. 2. If overall lifetime risk for the development of breast cancer is 20% or higher, the patient may qualify for future screening with alternating mammogram and breast MRI. [facility], , 03/31/2024 1:43 PM. Electronically signed and approved by: Cesar Luevano M.D. Radiologis
--- NOTE | 2024-03-31 14:02 | USB ---
Patient History: Menarche at age 11. First Full-Term at age 23. Left ovary removed at age 47. Right ovary removed at age 47. Hysterectomy at age 47. Postmenopausal. Previous Atypical Lobular Hyperplasia at age 71. 09/08/2022, Lumpectomy on the Left side. 09/08/2022, High risk MG pre op needle loc LT on the left side. 04/30/2022, High risk MG stereo VAD BX LT on the left side. Mother had breast cancer at or over age 50. Risk Values: Shameka 5 year model risk: 9.6%. NCI Lifetime model risk: 20.7%. Technique: Method: Targeted. Doppler: Color. Patient Position: Supine. Prior Study Comparison: 10/03/2021 Left MG 3D work up w/cad LT, [facility]. 04/08/2022 Left MG 3D diag mammo w/cad LT, [facility]. 03/12/2023 Left MG 3D diag mammo w/cad LT, [facility]. Findings: The area of palpable concern of the left breast, the axilla of the left breast and the retroareolar of the left breast were scanned. Hypoechoic mass at the left 3:00 position 8 cm from the nipple with irregular margins and posterior acoustic shadowing measuring approximately 1.7 x 1.5 x 1.8 cm highly suggestive of malignancy. Tissue diagnosis is recommended.. No adenopathy present within the axilla. Overall Assessment: Highly suggestive of malignancy, BI-RAD 5 Management: Ultrasound Core Biopsy of the left breast. A clinical breast exam by your physician is recommended on an annual basis and results should be correlated with mammographic findings. This exam should not preclude additional follow-up of suspicious palpable abnormalities. Results were given to the patient verbally at the time of exam. [facility], , 03/31/2024 1:59 PM. Electronically signed and approved by: Cesar Luevano M.D. Radiologis
--- NOTE | 2024-03-31 14:33 | XR ---
EXAMINATION TYPE: XR shoulder complete LT DATE OF EXAM: 03/31/2024 2:26 PM COMPARISON: None. CLINICAL INDICATION: Female, 73 years old with history of M25.512 PAIN LT SHOULDER, pain TECHNIQUE: XR shoulder complete LT views were obtained FINDINGS: There is no acute fracture/dislocation evident. The acromioclavicular and glenohumeral joint spaces appear within normal limits. The visualized ribs are intact and unremarkable. IMPRESSION: There is no acute fracture or dislocation. [facility], , 03/31/2024 2:31 PM
== END | disposition home or self-care (01) ==
LOC: RADMAMWWP 12:46
PROVIDERS: ATTEND Family Medicine
DX: N63.20 Unspecified lump in the left breast, unspecified quadrant (principal); Z78.0 Asymptomatic menopausal state; Z90.722 Acquired absence of ovaries, bilateral; M25.512 Pain in left shoulder; Z80.3 Family history of malignant neoplasm of breast; R92.333 Mammographic heterogeneous density, bilateral breasts
CPT/HCPCS: 73030; 77066; 76642; G0279; 77062

== ENCOUNTER → 2024-04-13 | Day surgery (SDC) | payer MEDICARE ==
--- NOTE | 2024-04-19 14:33 | MM ---
Reason for Exam: Post Procedure Mammogram. Last screening mammogram was performed less than 1 month ago. Patient History: Menarche at age 11. First Full-Term at age 23. Left ovary removed at age 47. Right ovary removed at age 47. Hysterectomy at age 47. Postmenopausal. Previous Atypical Lobular Hyperplasia at age 71. 09/08/2022, Lumpectomy on the Left side. 09/08/2022, High risk MG pre op needle loc LT on the left side. 04/30/2022, High risk MG stereo VAD BX LT on the left side. Mother had breast cancer at or over age 50. Risk Values: Shameka 5 year model risk: 9.6%. NCI Lifetime model risk: 20.7%. Prior Study Comparison: 04/08/2022 Left MG 3D diag mammo w/cad LT, [facility]. 03/12/2023 Left MG 3D diag mammo w/cad LT, [facility]. 03/31/2024 Bilateral MG 3D diag mammo w/cad MARTHA, [facility]. 03/31/2024 Left US breast limited LT, [facility]. Tissue Density: Left: The breasts are heterogeneously dense, which may obscure small masses. Pathology Description: Location: 3 o'clock. Marker Left Behind. Needle Type: Mammotome Cores: 5 Skin Nicks: 1 Gauge: 13 The procedure of ultrasound guided core biopsy was explained to the patient. Benefits, alternatives, and risks were discussed. An informed consent was then obtained. A timeout was performed. The patient was placed in supine positioning for imaging and for the procedure. The overlying skin was prepped and draped in usual sterile fashion. Lidocaine was used as anesthetic into the skin and subcutaneous tissue up to area of concern in the left breast. A small skin jelena was made with surgical scalpel. Under ultrasound guidance, a 12-gauge vacuum assisted biopsy gun device was used to obtain 5 core samples. A biopsy clip was left in lesion. Hydromark coil core marker was placed. The patient tolerated the procedure well without any immediate complication. The patient was kept in the radiology department for short stay after the procedure and then discharged home in stable condition. Postprocedure mammogram: The patient was transferred to mammography for physician ordered post procedure mammogram for clip placement verification. Post procedure mammogram demonstrates the clip in appropriate placement. Impression: Successful ultrasound guided core biopsy of area of concern in the left breast, full pathology results to follow. Recommendations: 1. Recommendations are pending pathology results. [facility], , 04/13/2024 5:52 PM. Pathology Results: Result: Malignant, Invasive lobular carcinoma. Pathology and radiology were reviewed. Findings are concordant. LEFT BREAST, THREE O'CLOCK, NEEDLE CORE BIOPSY: Invasive lobular carcinoma. See Surgical Pathology Cancer Case Summary and Comment. Overall Assessment: Malignant Assessment: MG diagnostic mammo LT wo CAD. - Left: Known biopsy proven malignancy, BI-RAD 6. Management: Surgical Consultation of the left breast. Electronically signed and approved by: Gregory Tarango D.O. Radiologis
== END ==
LOC: RADUSWWP 10:09
PROVIDERS: ATTEND Surgery
DX: C50.812 Malignant neoplasm of overlapping sites of left female breast (principal); Z90.721 Acquired absence of ovaries, unilateral; Z78.0 Asymptomatic menopausal state; Z80.3 Family history of malignant neoplasm of breast
CPT/HCPCS: 88305; 88342; 88341; 77065; 19083; A4648

== ENCOUNTER → 2024-04-21 | Outpatient (CLI) | payer MEDICARE ==
[2024-04-21 10:25] VITALS: BP 131/63; PULSE 86; RESP 17; TEMP 97.9
--- NOTE | 2024-04-21 10:54 | P.PN ---
Subjective Progress Note Date: 04/21/24 Principal diagnosis: invasive lobular cancer left breast 3 O Clock 08/27/22 Principal diagnosis: Atypical lobular hyperplasia Lana is a 71-year-old white female seen in consultation for Dr. Hardy regarding a radiographic abnormality in the left breast. On she underwent a bilateral mammogram which revealed some calcifications in the upper outer left breast zone C in 6 month follow-up was recommended. Six-month follow-up was performed on [id number]. This revealed increasing calcifications for which stereotactic core biopsy was recommended these were noted on the cc view approximately 12 cm from the nipple. On 04-30-22 she underwent a stereotactic core biopsy. This revealed atypical lobular hyperplasia. She does not feel any lumps masses or nodules of concern in either breast. She has never had any surgery on her breast in the past. She is not complaining of any nipple discharge or skin changes. She has not had any recent trauma or infection in the breast. At the time of the procedure 2 clips were placed. A coil clip and a Top-Hat clip were placed. The radiograph was reviewed extensively with Dr. Tarango from radiology and it was felt that the corneal clip was the one which was in proximity to the area of the biopsy. Additionally there were 2 areas of calcification the second area which was again reviewed did not appear to be suspicious and was not felt to warrant interventional biopsy prior to needle localization and excision of the area of atypia. The mammogram was reviewed with Dr. De Leon. It is felt that there were residual calcifications in the vicinity of the biopsy. The biopsy may be discordant. I discussed with the patient that we could forego a needle local excisional biopsy and recent recommendations are to watch some atypical lobular hyperplasias. However secondary to the radiographic findings as well as the patient's family history the patient would prefer that the area be excised. She underwent an excisional biopay of the area on 09-08-22 which showed atypical lobular hyperplasia and boardering on LCIS, she was recommended to see medical oncology for chemoprophylaxis all margins benign and (-) Bilateral mammogram on 03-31-24 showed a mass in the OUQ left breast for which an ultrasound was done. at 3:00 a 1.7 by 1.8 cm mass noted. A biopsy was done and this showed invasive lobular cancer, ER+Pr+, Her2-. G2. She states she could feel some nodularity in the left breast for about 2 weeks befjore the mammogram. She does not feel any other lumps or masses in either breast. She did not see medical oncology regarding chemoprophlyaxes. She is seen with her daughter and . Caffeine: 3 cups coffee/day nicotine: none; stopped 3 years ago used to smoke 1/PPD for 50 years chocolate: daily BCP: 1 year Family History: mother: breast cancer at 72 brother: bladder cancer patient: skin cancer above right eye, uterine cancer Hormonal history: Menarche: 14 M1, breast fed: no, age at first : 20 menopause: 47 hormones: none Surgical History: skin cancer two hip replacements hysterectomy/ ? if they took ovaries basal cell cancer on her nose Medical History: arthritis in back COPD Social History: alcohol: occasional drugs: none nicotine: as above - Constitutional Constitutional: Denies chills, Denies fever - EENT Eyes: bilateral as per HPI (cataracts), denies blurred vision, denies pain Ears, nose, mouth and throat: Denies headache, Denies sore throat - Breasts Breasts: bilateral: as per HPI - Cardiovascular Cardiovascular: Denies chest pain, Denies shortness of breath - Respiratory Respiratory: Denies cough - Gastrointestinal Gastrointestinal: Denies abdominal pain, Denies diarrhea, Denies nausea, Denies vomiting - Genitourinary (Female) Genitourinary: Denies dysuria, Denies hematuria - Menstruation Menstruation: Reports as per HPI - Musculoskeletal Musculoskeletal: Reports as per HPI - Integumentary Integumentary: Denies pruritus, Denies rash - Neurological Neurological: Reports numbness, Denies weakness - Psychiatric Psychiatric: Denies anxiety, Denies depression - Endocrine Endocrine: Denies fatigue, Denies weight change - Hematologic/Lymphatic Comment: none - Allergic/Immunologic Allergic/Immunologic: Reports as per HPI Past Medical History Past Medical History: COPD, Hyperlipidemia, Hypertension Additional Past Medical History / Comment(s): Skin cancer in the form of basal cell carcinoma on the forehead that was resected, uterine cancer status post hysterectomy History of Any Multi-Drug Resistant Organisms: None Reported Past Surgical History: Appendectomy, Hysterectomy, Joint Replacement Additional Past Surgical History / Comment(s): basal cell forehead Past Anesthesia/Blood Transfusion Reactions: No Reported Reaction Past Psychological History: No Psychological Hx Reported Smoking Status: Former smoker Past Alcohol Use History: None Reported Past Drug Use History: None Reported - Past Family History Brother(s) Family Medical History: Cancer Sister(s) Family Medical History: Cancer Mother Family Medical History: Cancer Father Family Medical History: Deep Vein Thrombosis (DVT) Medications and Allergies Home Medications Medication Instructions Recorded Confirmed Type Atorvastatin [Lipitor] 20 mg PO HS 02/27/15 04/30/22 History Docusate [Colace] 100 mg PO DAILY #30 capsule 01/08/16 04/30/22 Rx Ascorbic Acid [Vitamin C] 500 mg PO TID 04/08/22 04/30/22 History Aspirin [[place] Aspirin EC] 81 mg PO DAILY 04/08/22 04/30/22 History Cholecalciferol (Vitamin D3) 125 mcg PO BID 04/08/22 04/30/22 History [Vitamin D3 (125 MCG = 5,000 IU)] Finerenone [Kerendia] 10 mg PO DAILY 04/08/22 04/30/22 History Losartan [Cozaar] 25 mg PO DAILY 04/08/22 04/30/22 History Omeprazole [PriLOSEC] 20 mg PO AC-BRKFST 04/08/22 04/30/22 History Oxybutynin Chloride [Oxybutynin 15 mg PO DAILY 04/08/22 04/30/22 History Chloride ER] icosapent ethyL [Vascepa] 2 gm PO BID 04/08/22 04/30/22 History sitaGLIPtin [Januvia] 100 mg PO DAILY 04/08/22 04/30/22 History traZODone HCL [Desyrel] 50 mg PO HS 04/08/22 04/30/22 History Allergies Allergy/AdvReac Type Severity Reaction Status Date / Time No Known Allergies Allergy Verified 04/30/22 07:34 Objective - Vital Signs Vital signs: Vital Signs Temp 97.9 F 04/21/24 10:23 Pulse 86 04/21/24 10:23 Resp 17 04/21/24 10:23 BP 131/63 04/21/24 10:23 Pulse Ox 97 04/21/24 10:23 FiO2 Intake & Output 04/20/24 04/21/24 04/21/24 18:59 06:59 18:59 Weight 82.554 kg - Constitutional General appearance: Present: cooperative - EENT ENT: Present: hearing grossly normal - Neck Neck: Present: normal ROM - Respiratory Respiratory: bilateral: CTA - Cardiovascular Rhythm: regular Heart sounds: normal: S1, S2 - Integumentary Integumentary: Present: normal turgor - Musculoskeletal Musculoskeletal: Present: gait normal - Psychiatric Psychiatric: Present: A&O x's 3, appropriate affect, intact judgment & insight - Additional findings Additional findings: Breast Exam: BRA: 42C Inspection: Bilateral grade 2/3 ptosis Palpation: Right breast: Multi positional exam fibrocystic changes no dominant masses or nodules of concern Right axilla: No adenopathy of concern Left breast: Multi positional exam fibrocystic changes, ecchymosis at biopsy s ite, approximately 2 cm nodularity at the lateral aspect of the left breast which is freely mobile Left axilla: No adenopathy of concern Assessment and Plan Assessment: Impression: arthritis in back COPD ALH left breast resected on 09-08-22/ lobular neoplasia with ALH family history breast cancer Breast invasive lobular carcinoma Left breast needle localization excisional biopsy done on 09-08-22 stero biopay left breast on 04-13-24 invasive lobular cancer appointment medical oncology chemoprevention ordered but patient did not have this appointment Plan: Presentation of case at tumor board Probable left breast needle localization lumpectomy questionable sentinel node biopsy CC: Dr. Hardy
== END ==
LOC: WWCWWP 09:06
PROVIDERS: ATTEND Surgery
DX: M47.816 Spondylosis without myelopathy or radiculopathy, lumbar region (principal); J44.9 Chronic obstructive pulmonary disease, unspecified; I10 Essential (primary) hypertension; C50.912 Malignant neoplasm of unspecified site of left female breast; E78.5 Hyperlipidemia, unspecified; Z80.3 Family history of malignant neoplasm of breast; F17.210 Nicotine dependence, cigarettes, uncomplicated

== ENCOUNTER → 2024-05-16 | Outpatient (CLI) | payer MEDICARE ==
--- NOTE | 2024-05-17 12:30 | BMR ---
EXAM DATE: 05/16/2024 EXAM DESCRIPTION: MRI-Breast Bilat (W/WO Contrast) INDICATION: Recently diagnosed carcinoma presenting for staging COMPARISON: Comparison is made with relevant prior imaging in PACS. CONTRAST: 8 cc of Gadavist TECHNIQUE: Multiplanar MRI imaging of both breasts was performed with a dedicated breast coil, before and after intravenous administration of gadolinium contrast, using the standard breast mass protocol. Computer-aided detection was used to aid in interpretation. Study was performed at [facility] with Radiologic interpretation by [facility]. FINDINGS: General breast composition: There are scattered areas of fibroglandular tissue Background parenchymal enhancement: Mild FINDINGS: Right Breast: Review of the dynamic contrast-enhanced series shows no rapidly enhancing masses, suspicious enhancement patterns or other abnormalities. The T2 weighted series shows no abnormality. No lymphadenopathy. Left Breast: Review of the dynamic contrast-enhanced series shows an irregular enhancing mass measuring 2.5 x 1.5 x 1.5 cm in the central outer breast at mid depth (505:248) adjacent to the prior lumpectomy site. Focal non mass enhancement in the upper central breast at anterior depth measuring 01.0 x 0.8 x 0.7 cm (505:392, 601:56). No lymphadenopathy. IMPRESSION: Right Breast: BI-RADS Category1- Negative No MRI evidence of malignancy. No lymphadenopathy. Left Breast: BI-RADS Category 6- Known biopsy proven malignancy 1. 2.5 cm irregular mass at the prior lumpectomy bed consistent with known malignancy. 2. 1 cm focal non mass enhancement in the upper central breast at anterior depth. For which targeted ultrasound is recommended for further evaluation, if no sonographic correlate is found at MR biopsy is recommended. 3. No lymphadenopathy. Recommendation: Left targeted ultrasound and possible ultrasound-guided biopsy. If no sonographic correlate is found on MR biopsy is recommended. OVERALL ASSESSMENT -- BI-RADS 4 MTDD
== END | disposition home or self-care (01) ==
LOC: RADMRIMAIN 09:00
PROVIDERS: ATTEND Surgery
DX: C50.912 Malignant neoplasm of unspecified site of left female breast (principal)
CPT/HCPCS: C8908; A9585; 77049

== ENCOUNTER → 2024-06-07 | Outpatient (CLI) | payer MEDICARE | END | disposition home or self-care (01) | LOC: LABWHC1 08:32 | PROVIDERS: ATTEND Internal Medicine Cardiovascular Disease | DX: I48.3 Typical atrial flutter (principal) | CPT/HCPCS: 36415; 83735 ==

== ENCOUNTER → 2024-06-07 | Outpatient (CLI) | payer MEDICARE ==
--- NOTE | 2024-06-08 12:02 | CA ---
Transthoracic Echo Report Name: Lana Olivo Age: 74 Gender: F : 1950 Exam Date: 06/07/2024 15:57 Exam Location: [place] [facility] Ht (in): 66 Wt (lb): 187 Ordering Physician: Philippe Hardy DO Attending/Referring Phys: Blue Tena MD ([id number]) [employer] Karley Rich RDCS Procedure CPT: Indications: R94.31 ABNORMAL EKG Cardiac Hx: Technical Quality: Fair Contrast 1: Total Dose (mL): Contrast 2: Total Dose (mL): MEASUREMENTS (Male / Female) Normal Values 2D ECHO LV Diastolic Diameter PLAX 5.6 cm 4.2 - 5.9 / 3.9 - 5.3 cm LV Systolic Diameter PLAX 3.7 cm IVS Diastolic Thickness 0.8 cm 0.6 - 1.0 / 0.6 - 0.9 cm LVPW Diastolic Thickness 1.0 cm 0.6 - 1.0 / 0.6 - 0.9 cm LV Relative Wall Thickness 0.3 LVOT Diameter 2.2 cm LV Diastolic Volume MOD BP 108.2 cm??? 67 - 155 / 56 - 104 cm??? LV Systolic Volume MOD BP 41.2 cm??? 22 - 58 / 19 - 49 cm??? LV Ejection Fraction MOD BP 61.9 % >= 55 % LV Cardiac Index MOD BP 2730.4 cm???/min???m??? LV Diastolic Volume MOD 4C 98.2 cm??? LV Systolic Volume MOD 4C 39.2 cm??? LV Ejection Fraction MOD 4C 60.1 % LV Cardiac Index MOD 4C 2402.2 cm???/min???m??? LV Diastolic Length 4C 6.8 cm LV Systolic Length 4C 5.8 cm LV Diastolic Volume MOD 2C 105.4 cm??? LV Systolic Volume MOD 2C 42.7 cm??? LV Ejection Fraction MOD 2C 59.5 % LV Cardiac Index MOD 2C 2556.9 cm???/min???m??? LV Diastolic Length 2C 7.8 cm LV Systolic Length 2C 6.0 cm LA Volume 48.9 cm??? 18 - 58 / 22 - 52 cm??? LA Volume Index 24.3 cm???/m??? 16 - 28 cm???/m??? DOPPLER AV Peak Velocity 281.5 cm/s AV Peak Gradient 31.7 mmHg AV Mean Velocity 196.5 cm/s AV Mean Gradient 17.4 mmHg AV Velocity Time Integral 70.7 cm LVOT Peak Velocity 82.7 cm/s LVOT Peak Gradient 2.7 mmHg LVOT Velocity Time Integral 19.3 cm LVOT Stroke Volume 71.7 cm??? LVOT Stroke Volume Index 36.9 ml/m??? LVOT Cardiac Index 2919.3 cm???/min???m??? AV Area Cont Eq vti 1.0 cm??? AV Area Cont Eq pk 1.1 cm??? MV Area PHT 5.1 cm??? Mitral E Point Velocity 87.9 cm/s Mitral A Point Velocity 84.1 cm/s Mitral E to A Ratio 1.0 MV Deceleration Time 148.0 ms FINDINGS Left Ventricle Left ventricular ejection fraction is estimated at 55-60 %. Mildly increased posterior wall thickness. Mildly increased left ventricular diastolic diameter. Mildly increased left ventricular diastolic volume. No obvious regional wall motion abnormalities. Right Ventricle Normal right ventricular size and function. Unable to estimate the right ventricular systolic pressure. Right Atrium Normal right atrial size. Left Atrium Normal left atrial size. Mitral Valve Structurally normal mitral valve. No evidence for mitral valve prolapse. No mitral stenosis. Trace to mild mitral regurgitation. Aortic Valve Trileaflet aortic valve. Mild to moderate aortic stenosis. No aortic regurgitation. Tricuspid Valve Structurally normal tricuspid valve. No tricuspid stenosis. Trace tricuspid regurgitation. Pulmonic Valve Pulmonic valve not well visualized. Pericardium No pericardial effusion. Aorta Aortic annulus normal. CONCLUSIONS Left ventricular ejection fraction is estimated at 55-60 %. No obvious regional wall motion abnormalities. Normal right ventricular size and function. Trace to mild mitral regurgitation. Mild to moderate aortic stenosis. Trace tricuspid regurgitation. Previewed by: Dr Favio Pagan (Electronically Signed) Final Date: 08 June 2024 12:02
== END | disposition home or self-care (01) ==
LOC: RADECHMAIN 15:54
PROVIDERS: ATTEND Family Medicine
DX: I35.0 Nonrheumatic aortic (valve) stenosis (principal); I07.1 Rheumatic tricuspid insufficiency; I34.0 Nonrheumatic mitral (valve) insufficiency; R94.31 Abnormal electrocardiogram [ECG] [EKG]
CPT/HCPCS: 93306

== ENCOUNTER → 2024-06-07 | Day surgery (SDC) | payer MEDICARE ==
--- NOTE | 2024-06-12 11:27 | MM ---
Reason for Exam: Post Procedure Mammogram. Last screening mammogram was performed 2 month(s) ago. Patient History: Menarche at age 11. First Full-Term at age 23. Left ovary removed at age 47. Right ovary removed at age 47. Hysterectomy at age 47. Postmenopausal. Breast cancer, left, age 73. Previous Atypical Lobular Hyperplasia at age 71. 04/13/2024, Malignant US biopsy breast VAD LT on the left side. 09/08/2022, Lumpectomy on the Left side. 09/08/2022, High risk MG pre op needle loc LT on the left side. 04/30/2022, High risk MG stereo VAD BX LT on the left side. Mother had breast cancer at or over age 50. Prior Study Comparison: 03/12/2023 Left MG 3D diag mammo w/cad LT, [facility]. 03/31/2024 Bilateral MG 3D diag mammo w/cad MARTHA, [facility]. 04/13/2024 Left MG diagnostic mammo LT wo CAD., [facility]. Tissue Density: Left: The breasts are heterogeneously dense, which may obscure small masses. Pathology Description: Location: 2 o'clock. Marker Left Behind. Needle Type: Mammotome Cores: 3 Skin Nicks: 1 Gauge: 13 The procedure of ultrasound guided core biopsy was explained to the patient. Benefits, alternatives, and risks were discussed. An informed consent was then obtained. The patient was placed in supine positioning for imaging and for the procedure. The overlying skin was prepped and draped in usual sterile fashion. Lidocaine buffered with bicarbonate was used as anesthetic into the skin and subcutaneous tissue up to area of concern in the left breast 2:00 2 cm from the nipple breast. A jelena was made with surgical scalpel. Under ultrasound guidance, a 12-gauge vacuum assisted biopsy gun device was used to obtain 3 core samples. Following this, a biopsy clip was left in lesion. The patient tolerated the procedure well without any immediate complication. The patient was kept in the radiology department for short stay after the procedure and then discharged home in stable condition. Postprocedure mammogram: The patient was transferred to mammography for physician ordered post procedure mammogram for clip placement verification. Post procedure mammogram demonstrates appropriate placement of clip. Impression: Successful, uncomplicated ultrasound guided core biopsy of area of concern in the left breast 2:00 2 cm nipple, full pathology results to follow. [facility], , 06/07/2024 9:06 AM. Pathology Results: Result: Benign, Fibrocystic change. Pathology and radiology were reviewed. Findings are concordant. LEFT BREAST, TWO O'CLOCK, ULTRASOUND GUIDED NEEDLE CORE BIOPSY: Benign breast with fibrocystic changes including mild to moderate usual type ductal hyperplasia. Overall Assessment: Benign Assessment: MG diagnostic mammo LT wo CAD. - Left: Benign, BI-RAD 2. Management: Diagnostic Mammogram of the left breast in 6 months. Electronically signed and approved by: Chad Cortez DO
== END ==
LOC: RADUSWWP 07:06
PROVIDERS: ATTEND Surgery
DX: N60.12 Diffuse cystic mastopathy of left breast (principal); Z90.721 Acquired absence of ovaries, unilateral; Z85.3 Personal history of malignant neoplasm of breast; Z80.3 Family history of malignant neoplasm of breast
CPT/HCPCS: 88305; 77065; 19083; A4648

== ENCOUNTER 2024-06-28 10:38 | Day surgery (SDC) | payer MEDICARE ==
[2024-06-26 11:10] VITALS: BMI 29.8
[~2024-06-28 10:38] MED LIST changes: -DEXAMETHASONE SOD PHOSPHATE 4 MG/ML 1 ML VIAL IV ONE; -HEPARIN SODIUM,PORCINE/PF 5,000 UNIT/0.5 ML SYRINGE SQ PRN; -LACTATED RINGERS 1,000 ML IV SCH; -LIDOCAINE 1% (10MG/ML) FOR IV START INTRADERMA PRN; +METHYLENE BLUE 50 MG/10 ML AMPUL MISCELLANE ONE; -MIDAZOLAM 2 MG/2 ML VIAL IV PRN; -ONDANSETRON 4 MG/2 ML VIAL IVP ONE; -Pre Op ABX Message 1 EACH MISC MISCELLANE ONE
[2024-06-28] MEDS: ACETAMINOPHEN TAB 500 MG TAB PO PRN (11:39)
[2024-06-28] MEDS: ALPRAZolam 0.25 MG TAB PO STA (11:41)
[2024-06-28] MEDS: LACTATED RINGERS 1,000 ML IV SCH (12:00)
[2024-06-28] MEDS: IV FLUID CONTINUATION 1,000 ML IV ONE (12:01)
[2024-06-28 12:02] LABS: Glucose,Whole Blood 126 mg/dL (70-110)
[2024-06-28] MEDS: SODIUM BICARB 8.4% 50 ML VIAL (1 MEQ/ML) MISCELLANE ONE (12:32)
[2024-06-28] MEDS: LIDOCAINE 1% INJ 10MG/ML (20 ML MDV) SQ ONE ×2 (12:32→14:09)
[2024-06-28] MEDS: METHYLENE BLUE 50 MG/10 ML AMPUL MISCELLANE ONE (12:36)
[2024-06-28 12:55] VITALS: TEMP 98.5
[2024-06-28] MEDS: DEXAMETHASONE SOD PHOSPHATE 4 MG/ML 1 ML VIAL IV ONE (13:11)
[2024-06-28] MEDS: ONDANSETRON 4 MG/2 ML VIAL IVP ONE (13:11)
[2024-06-28] MEDS: HEPARIN SODIUM,PORCINE 5,000 UNIT/ML 1 ML VIAL SQ PRN (13:11)
--- NOTE | 2024-06-28 13:14 | P.NAPBC ---
NAPBC Queries - NAPBC Queries Was patient's case review presented at [facility] tumor board? If no, comment.: Yes Was patient's pathology reviewed at [facility]? If no, comment.: Yes Was breast conservation surgery offered? If no, comment.: Yes Was sentinel node biopsy offered? If no, comment.: Yes Was diagnosis confirmed by percutaneous core biopsy? If no, comment.: Yes Is patient mastectomy patient?: No Was a preop referral to reconstructive surgeon offered?: No Clinical Stage: [id number]+NC+Her2-G2- left breast invasive lobular cancer
[2024-06-28] MEDS ORDERED: SUCCINYLCHOLINE CHLORIDE 200 MG/10 ML VIAL IV ONE (13:20)
[2024-06-28] MEDS ORDERED: LIDOCAINE 1% INJ 10MG/ML (20 ML MDV) ONE (13:20)
[2024-06-28] MEDS ORDERED: PHENYLEPHRINE 10 MG/ML VIAL ONE (13:20)
[2024-06-28] MEDS ORDERED: MIDAZOLAM 2 MG/2 ML VIAL ONE (13:20)
[2024-06-28] MEDS ORDERED: PROPOFOL 10 MG/ML 20 ML VIAL IV ONE (13:20)
[2024-06-28] MEDS ORDERED: GLYCOPYRROLATE 0.2 MG/ML 2 ML VIAL ONE (13:20)
[2024-06-28] MEDS ORDERED: fentaNYL (PF) 50 MCG/ML 2 ML AMP ONE (13:20)
[2024-06-28] MEDS: METHYLENE BLUE 50 MG/10 ML AMPUL INJ ONE (14:00)
--- NOTE | 2024-06-28 14:23 | NM ---
EXAMINATION TYPE: NM sentinel node injection DATE OF EXAM: 06/28/2024 COMPARISON: NONE CLINICAL INDICATION: Female, 74 years old with history of C50.912 BREAST CANCER; left-sided breast ca ncer 3:00 position TECHNIQUE AND FINDINGS: The procedure of sentinel lymph node injection was explained to the patient. The benefits, alternatives, and risks were discussed. An informed consent was then obtained. Overlying skin is cleaned with sterile alcohol. Following this, 518 uCi Tc99m Tilmanocept was inject ed in the upper outer aspect of the left nipple intradermally. The patient tolerated the procedure well without any immediate complication. The patient was kept in the radiology department for short stay after the procedure and then taken to surgery for surgical p rocedure what is presumed intraoperative gamma probe will be used for sentinel lymph node detection. IMPRESSION: Left breast radiotracer injection for sentinel node localization as above. [facility], , 06/28/2024 2:21 PM
--- NOTE | 2024-06-28 14:54 | P.BCAON ---
Date of Procedure: 06/28/24 Preoperative Diagnosis: Left breast invasive lobular carcinoma Postoperative Diagnosis: Same Procedure(s) Performed: Left breast needle localization lumpectomy, sentinel node mapping, sentinel node biopsy, oncoplastic tissue transfer 31 cm Anesthesia: GETA Surgeon: Zaira Salgado Estimated Blood Loss (ml): 10 IV fluids (ml): 1,000 Pathology: other (Breast tissue, sentinel lymph node) Condition: stable Disposition: same day Indications for Procedure: Biopsy-proven left breast invasive lobular carcinoma Operative Findings: Fatty breast tissue Description of Procedure: Patient was first seen in the radiology department where needle localization of the area of concern in the left breast was performed, as well as injection of methylene blue at the site of the tumor. Radiotracer was injected in the periareolar area. The patient was brought to the operative suite. Following induction of anesthesia the neoprobe was used to interrogate the axilla. Radioactivity was identified in the axilla but it was minimal. Therefore 10 cc of half percent methylene blue was injected into the periareolar region after it was prepped using alcohol. Following this the left breast and axilla were pre pped and draped in a sterile fashion. The left axilla was approached initially. Using the neoprobe to direct the incision an incision was made and carried down to the axillary tissue. A blue lymph node was identified. The 10-second count on this lymph node was 29,696. The node was removed. The interrogation of the axilla following removal of the node revealed a 10-second background count of 48. No other blue or radioactive lymph nodes of concern were identified. No palpable nodes otherwise were identified. The wound was well irrigated. The deep tissues were closed using 3-0 Vicryl suture. The skin was closed using 4-0 Monocryl. The area of the breast was approached. An incision was made and carried down to the hook of the needle. Surrounding tissue was excised. The specimen was 5 x 3 cm. It was painted for orientation. Radiograph revealed the lesion of concern had been removed. The deep tissues were dissected down to the pectoralis muscle posteriorly. An inferior pillar 4 x 2 cm was developed in the subcutaneous tissue. A superior pillar 4 x 2 cm was developed in the subcutaneous tissue. Titanium clips were placed. Surgicel in powder form was placed. The pillars were brought together and secured using 3-0 Vicryl suture. The subcutaneous tissue was closed using 3-0 Vicryl suture. The skin was closed using 4-0 Monocryl. 10 cc of 1% lidocaine were injected into the area of the incision. Steri-Strips were applied. The patient tolerated the procedure in stable stable condition. All instrument and sponge counts were correct at the end of the case. - Sentinal Node Biopsy Operation performed with curative intent: Yes Tracer(s) used in upfront surgery (non-neoadjuvant): dye, radioactive tracer Tracer(s) used in the neoadjuvant setting: N/A All nodes present at end of dye-filled channel removed: Yes All significantly radioactive nodes were removed: Yes All palpably suspicious nodes were removed: Yes Clipped positive nodes identified and removed: N/A
[2024-06-28 15:28] VITALS: RESP 16
[2024-06-28 16:30] VITALS: BP 134/59; PULSE 69
--- NOTE | 2024-07-11 09:51 | MM ---
Reason for Exam: Post Procedure Mammogram. Last screening mammogram was performed 3 month(s) ago. Patient History: Menarche at age 11. First Full-Term at age 23. Left ovary removed at age 47. Right ovary removed at age 47. Hysterectomy at age 47. Postmenopausal. Breast cancer, left, age 73. Previous Atypical Lobular Hyperplasia at age 71. 06/07/2024, Benign US biopsy breast VAD LT on the left side. 04/13/2024, Malignant US biopsy breast VAD LT on the left side. 09/08/2022, Lumpectomy on the Left side. 09/08/2022, High risk MG pre op needle loc LT on the left side. 04/30/2022, High risk MG stereo VAD BX LT on the left side. Mother had breast cancer at or over age 50. Prior Study Comparison: 03/31/2024 Bilateral MG 3D diag mammo w/cad [facility], [facility]. 04/13/2024 Left MG diagnostic mammo LT wo CAD., [facility]. 06/01/2024 Left US breast limited LT, [facility]. 06/07/2024 Left MG diagnostic mammo LT wo CAD., [facility]. Tissue Density: Left: The breasts are heterogeneously dense, which may obscure small masses. Pathology Description: Location: 3 o'clock. Needle Type: 5 cm Timo The procedure of needle localization with wire placement and than surgical excision was explained to the patient. Benefits, alternatives, and risks were discussed. An informed consent was then obtained. Ultrasound localization was chosen. The overlying skin was prepped and draped in usual sterile fashion. Lidocaine buffered with bicarbonate was used as anesthetic into the skin and subcutaneous tissue up to the level of area of concern. A 5 cm needle was used. It was placed via ultrasound guidance. At this point ordering surgeon is present to inject approximately 1 cc of diluted methylene blue. At this point, wire was then placed and the needle was withdrawn. The wire was fixed to patient's skin. Post procedure mammogram for surgery request shows satisfactory positioning of needle relative to the targeted clip and mass. Images were reviewed with the surgeon. The patient tolerated the procedure well without any immediate complication. The patient was kept in the radiology department for short stay after the procedure and then taken to surgery for surgical excision. Targeted clip and wire are identified in specimen mammogram. The patient was kept in hospital for short stay after the procedure and then discharged home in stable condition. IMPRESSION: Successful, uncomplicated needle localization with wire placement and surgical excision of targeted clip in the left breast, full pathology results to follow. [facility], , 06/28/2024 2:47 PM. Pathology Results: Result: Malignant, Invasive lobular carcinoma. Pathology and radiology were reviewed. Findings are concordant. A. LEFT BREAST TISSUE, LUMPECTOMY: Invasive lobular carcinoma, margins negative for malignancy. Tumor closely approaches medial and posterior margins (tumor is less than 1 mm from posterior and medial margins). See Surgical Pathology Cancer Case Summary. B. SENTINEL NODE #1, BIOPSY: Lymph node negative for metastasis. JILLIAN immunostain performed on blocks B1, B2, B3, B4 and B6 is confirmatory (control appropriate). Overall Assessment: Malignant Assessment: MG diagnostic mammo LT wo CAD. - Left: Known biopsy proven malignancy, BI-RAD 6. Management: Surgical Consultation of the left breast. Electronically signed and approved by: Eze De La Rosa M.D.
== END 2024-06-28 16:43 | disposition home or self-care (01) ==
LOC: OR 10:38
PROVIDERS: ATTEND Surgery
DX: C50.912 Malignant neoplasm of unspecified site of left female breast (principal); J44.9 Chronic obstructive pulmonary disease, unspecified; I10 Essential (primary) hypertension; E78.5 Hyperlipidemia, unspecified; Z87.891 Personal history of nicotine dependence; Z79.82 Long term (current) use of aspirin
CPT/HCPCS: 19301; 88342; 88307; 77065; 76098; 19285; 38792; C1819; A9520; J2250; J0330; J1644; J1100; J0690; J2405; J2003; J3010; J2704; Q9968; J2371; J1596

== ENCOUNTER → 2024-07-06 | Outpatient (CLI) | payer MEDICARE ==
[2024-07-06 12:25] VITALS: BP 121/63; PULSE 79; RESP 17; TEMP 97.6
--- NOTE | 2024-07-06 12:36 | P.BCPO ---
Progress Note - Text Progress Note Date: 07/06/24 Lana is status post left breast lumpectomy and SNB on 06-28-24. Her pathology is pending. She is doing well post op. Examination: Lungs: Clear Heart: Regular rate and rhythm Incisions clean and dry Impression: Patient doing very well postoperatively Plan: Awaiting pathology Appointment medical and radiation oncology Appointment here next week
== END ==
LOC: WWCWWP 11:11
PROVIDERS: ATTEND Surgery
DX: Z98.890 Other specified postprocedural states (principal); F17.200 Nicotine dependence, unspecified, uncomplicated

== ENCOUNTER → 2024-07-13 | Outpatient (CLI) | payer MEDICARE ==
[2024-07-13 16:48] VITALS: BP 127/64; PULSE 83; RESP 17; TEMP 98
--- NOTE | 2024-07-13 16:52 | P.BCPO ---
Progress Note - Text Progress Note Date: 07/13/24 07-13-24 Lana is status post left breast lumpectomy and SNB on 06-28-24. Her pathology 2.8 cm invasive lobular cancer, (-) margins. one node (-). She is doing well post op. Not complaining of any fever or chills oncotype : [address] Sahni: recommend radiation and AI Examination: Lungs: Clear Heart: Regular rate and rhythm Incisions clean and dry, mild erythema dependent portion of the breast incisions are clean and dry Impression: Patient doing very well postoperatively Plan: antibiotic for mild erythema of the breast keflex, 500mg QID for 10 days Awaiting pathology Appointment medical and radiation oncology 07-21-24 Appointment here 2 weeks Additional CC's: Philippe Hardy
== END ==
LOC: WWCWWP 16:12
PROVIDERS: ATTEND Surgery
DX: Z98.890 Other specified postprocedural states (principal); F17.200 Nicotine dependence, unspecified, uncomplicated

== ENCOUNTER → 2024-08-04 | Outpatient (CLI) | payer MEDICARE | END | disposition home or self-care (01) | LOC: LABWHC1 10:35 | PROVIDERS: ATTEND Family Medicine | DX: R60.0 Localized edema (principal) | CPT/HCPCS: 36415; 83880 ==

== ENCOUNTER → 2024-08-04 | Outpatient (CLI) | payer MEDICARE ==
[2024-08-04 11:48] VITALS: BP 124/48; PULSE 100; RESP 17; TEMP 97.8
--- NOTE | 2024-08-04 15:30 | P.BCPO ---
Progress Note - Text Progress Note Date: 08/04/24 07/13/24 07-13-24 Lana is status post left breast lumpectomy and SNB on 06-28-24. Her pathology 2.8 cm invasive lobular cancer, (-) margins. one node (-). She is doing well post op. Not complaining of any fever or chills; pain of a mole on her right leg and would like to have this excised oncotype : [address] Sahni: recommend radiation and AI Examination: Lungs: Clear Heart: Regular rate and rhythm Incisions clean and dry, mild erythema dependent portion of the left breast improved Nevus right leg which is bleeding at this time and she would like to have it resected Impression: Patient doing very well postoperatively Plan: Completed antibiotic for mild erythema of the breast keflex, 500mg QID for 10 day Appointment medical and radiation oncology 07-21-24 Appointment here for resection nevus right leg and follow-up in 4 months Additional CC's: Philippe Hardy
== END ==
LOC: WWCWWP 11:08
PROVIDERS: ATTEND Surgery
DX: C50.919 Malignant neoplasm of unspecified site of unspecified female breast (principal); Z98.890 Other specified postprocedural states

== ENCOUNTER → 2024-09-29 | Outpatient (CLI) | payer MEDICARE | END | disposition home or self-care (01) | LOC: LABWHC1 15:51 | PROVIDERS: ATTEND Internal Medicine Cardiovascular Disease | DX: R00.1 Bradycardia, unspecified (principal) | CPT/HCPCS: 36415; 84443 ==

== ENCOUNTER 2024-10-11 19:03 | Emergency (ER) | payer MEDICARE ==
[2024-10-11 19:35] VITALS: BP 126/74; PULSE 74; RESP 22; TEMP 98
[2024-10-11] MEDS: ACETAMINOPHEN TAB 325 MG TAB PO STA (20:00)
--- NOTE | 2024-10-11 20:37 | XR ---
EXAMINATION TYPE: XR shoulder complete LT, XR humerus LT DATE OF EXAM: 10/11/2024 8:24 PM CLINICAL INDICATION:Female, 74 years old with history of pain; PHH, pain COMPARISON: None TECHNIQUE: XR shoulder complete LT, XR humerus LT; left shoulder examined in AP, internally rotated a nd scapular Y projections. The left humerus examined in 2 views. FINDINGS: No evidence of acute osseous pathology, joint dislocation, or significant soft tissue abnormality. T he remaining portions of the visualized chest are unremarkable. Degenerative changes of the glenoid and humeral head. IMPRESSION: No acute osseous pathology or joint dislocation. [facility], , 10/11/2024 8:34 PM
--- NOTE | 2024-10-11 20:47 | ED ---
Upper Extremity HPI - General Chief Complaint: Extremity Injury, Upper Stated Complaint: Left Arm Pain Time Seen by Provider: 10/11/24 19:36 Source: patient Mode of arrival: ambulatory Limitations: no limitations - History of Present Illness Initial Comments: 74-year-old female presenting with chief complaint of left arm pain. Patient reports that she was reaching up into the microwave when she felt sudden onset pain near her shoulder. Then tried reaching back up to put something inside the microwave and again had pain and difficulty with lifting the arm. She is having no neck pain. No numbness or tingling. Pain starts in the shoulder and goes into the bicep region. No chest pain or difficulty breathing. No nausea, vomiting, jaw pain, diaphoresis, weakness, abdominal pain. No injury or trauma. - Related Data Home Medications Medication Instructions Recorded Confirmed Atorvastatin [Lipitor] 20 mg PO HS 02/27/15 08/04/24 Ascorbic Acid [Vitamin C] 500 mg PO TID 04/08/22 08/04/24 Aspirin [Pinecraft Aspirin EC] 81 mg PO DAILY 04/08/22 08/04/24 Cholecalciferol (Vitamin D3) 125 mcg PO BID 04/08/22 08/04/24 [Vitamin D3 (125 MCG = 5,000 IU)] Finerenone [Kerendia] 10 mg PO DAILY 04/08/22 08/04/24 Losartan [Cozaar] 25 mg PO QAM 04/08/22 08/04/24 Omeprazole [PriLOSEC] 20 mg PO AC-BRKFST 04/08/22 08/04/24 Oxybutynin Chloride [Oxybutynin 15 mg PO DAILY 04/08/22 08/04/24 Chloride ER] icosapent ethyL [Vascepa] 2 gm PO BID 04/08/22 08/04/24 sitaGLIPtin [Januvia] 100 mg PO DAILY 04/08/22 08/04/24 traZODone HCL [Desyrel] 50 mg PO HS 04/08/22 08/04/24 Menthol [Biofreeze] 1 applic TOPICAL DIRECTED PRN 09/03/22 08/04/24 Previous Rx's Medication Instructions Recorded Docusate [Colace] 100 mg PO DAILY #30 capsule 01/08/16 oxyCODONE HCL [OxyIR] 5 mg PO Q6H PRN 3 Days #5 tab 06/28/24 Cephalexin [Keflex] 500 mg PO Q6HR 1 Days #4 cap 07/13/24 Allergies Allergy/AdvReac Type Severity Reaction Status Date / Time No Known Allergies Allergy Verified 10/11/24 19:35 Review of Systems ROS Statement: Those systems with pertinent positive or pertinent negative responses have been documented in the HPI. ROS Other: All systems not noted in ROS Statement are negative. Past Medical History Past Medical History: Cancer, COPD, Diabetes Mellitus, Eye Disorder, Hyperlipidemia, Hypertension, Osteoarthritis (OA) Additional Past Medical History / Comment(s): Hx basal cell carcinoma on forehead, hx uterine cancer, Breast cancer. Cataracts. History of Any Multi-Drug Resistant Organisms: None Reported Past Surgical History: Appendectomy, Hysterectomy, Joint Replacement Additional Past Surgical History / Comment(s): Basal cell removed from forehead and nose. bilateral hip replacements. Past Anesthesia/Blood Transfusion Reactions: No Reported Reaction Past Psychological History: No Psychological Hx Reported Smoking Status: Former smoker Past Alcohol Use History: Rare Past Drug Use History: None Reported - Past Family History Brother(s) Family Medical History: Cancer, Myocardial Infarction (AL) Sister(s) Family Medical History: Cancer Mother Family Medical History: Cancer Father Family Medical History: Pulmonary Embolus General Exam Limitations: no limitations General appearance: alert, in no apparent distress Head exam: Present: atraumatic, normocephalic, normal inspection Eye exam: Present: normal appearance, EOMI Neck exam: Present: normal inspection. Absent: meningismus Respiratory exam: Present: normal lung sounds bilaterally. Absent: respiratory distress, wheezes, rales, rhonchi, stridor Cardiovascular Exam: Present: regular rate, normal rhythm, normal heart sounds. Absent: systolic murmur, diastolic murmur, rubs, gallop, clicks Left Shoulder Exam: Present: normal inspection, tenderness. Absent: full ROM, swelling Upper Arm exam: Present: normal inspection, tenderness. Absent: full ROM, swelling Vascular: Absent: vascular compromise Neurological exam: Present: alert, oriented X3 Psychiatric exam: Present: normal affect, normal mood Skin exam: Present: warm, dry, normal color Course Vital Signs 10/11/24 19:28 Temperature 98.0 F Pulse Rate 74 Respiratory 22 Rate Blood Pressure 126/74 O2 Sat by Pulse 97 Oximetry Medical Decision Making - Medical Decision Making Was pt. sent in by a medical professional or institution (, [facility], [facility], urgent care, hospital, or detention...) When possible be specific @ -No Did you speak to anyone other than the patient for history (EMS, parent, family, police, friend...)? What history was obtained from this source @ -No Did you review nursing and triage notes (agree or disagree)? Why? @ -I reviewed and agree with nursing and triage notes Were old charts reviewed (outside hosp., previous admission, EMS record, old EKG, old radiological studies, urgent care reports/EKG's, detention records)? Report findings @ -No old charts were reviewed Differential Diagnosis (chest pain, altered mental status, abdominal pain women, abdominal pain men, vaginal bleeding, weakness, fever, dyspnea, syncope, headache, dizziness, GI bleed, back pain, seizure, CVA, palpatations, mental health, musculoskeletal)? @ -Differential Musculoskeletal Muscular strain, contusion, ligament sprain, fracture, arthritis, septic arthritis, bursitis, cellulitis, muscle spasm, nerve compression, DVT, arterial occlusion, herpes zoster, electrolyte abnormality, tumor.... This is not meant to be in all inclusive list EKG interpreted by me (3pts min.). @ -As above X-rays interpreted by me (1pt min.). @ -X-ray negative for fracture or dislocation CT interpreted by me (1pt min.). @ -None done U/S interpreted by me (1pt. min.). @ -None done What testing was considered but not performed or refused? (CT, X-rays, U/S, labs)? Why? @ -None What meds were considered but not given or refused? Why? @ -None Did you discuss the management of the patient with other professionals (professionals i.e. HIGINIO Olivares, SHELVER, lab, RT, psych nurse, foster care social worker, recenterer, teacher, credit officer, corrections caseworker)? Give summary @ -No Was smoking cessation discussed for >3mins.? @ -No Was critical care preformed (if so, how long)? @ -No Were there social determinants of health that impacted care today? How? (Homelessness, low income, unemployed, alcoholism, drug addiction, transportation, low edu. Level, literacy, decrease access to med. care, retirement, rehab)? @ -No Was there de-escalation of care discussed even if they declined (Discuss DNR or withdrawal of care, Hospice)? DNR status @ -No What co-morbidities impacted this encounter? (DM, HTN, Smoking, COPD, CAD, Cancer, CVA, ARF, Chemo, Hep., AIDS, mental health diagnosis, sleep apnea, morbid obesity)? @ -None Was patient admitted / discharged? Hospital course, mention meds given and route, prescriptions, significant lab abnormalities, going to OR and other pertinent info. @ -74-year-old female presented with chief complaint of left shoulder and upper arm pain. Started when she was reaching upwards into the microwave. No other injury or trauma. She is having no numbness or tingling and no chest pain or difficulty breathing. Benign physical exam. X-ray negative for fracture or dislocation. Seems to be muscular in nature. She is provided with a sling and educated on supportive management. She will follow-up with her orthopedist Dr. Higgins. Follow-up with PCP. Report back to ER with any new or worsening symptoms. Discussed return parameters and answered all questions. Patient conveyed verbal understanding and agreed to the plan. My attending is Dr. Webb Undiagnosed new problem with uncertain prognosis? @ -No Drug Therapy requiring intensive monitoring for toxicity (Heparin, Nitro, Insulin, Cardizem)? @ -No Were any procedures done? @ -No Diagnosis/symptom? @ -Arm strain Acute, or Chronic, or Acute on Chronic? @ -Acute Uncomplicated (without systemic symptoms) or Complicated (systemic symptoms)? @ -Uncomplicated Side effects of treatment? @ -No Exacerbation, Progression, or Severe Exacerbation? @ -No Poses a threat to life or bodily function? How? (Chest pain, [place], [place], pneumonia, PE, COPD, DKA, ARF, appy, cholecystitis, CVA, Diverticulitis, Homicidal, Suicidal, threat to staff... and all critical care pts) @ -Unlikely Disposition Clinical Impression: Strain of left upper arm Disposition: HOME SELF-CARE Condition: Good Instructions (If sedation given, give patient instructions): Arm Pain (ED) Additional Instructions: Follow-up with orthopedics. Report back to ER with any new or worsening symptoms. Tylenol as needed for pain. Use your sling and rest. Is patient prescribed a controlled substance at d/c from ED?: No Referrals: Philippe Hardy DO [Primary Care Provider] - 1-2 days Ethan Reese MD [STAFF PHYSICIAN] - 1-2 days Time of Disposition: 20:47
== END 2024-10-11 21:05 | disposition home or self-care (01) ==
LOC: EC 19:03
DX: S46.912A Strain of unspecified muscle, fascia and tendon at shoulder and upper arm level, left arm, initial encounter (principal); Z87.891 Personal history of nicotine dependence; X58.XXXA Exposure to other specified factors, initial encounter
CPT/HCPCS: 99283